=== PATIENT | male | born 1940 | race American Indian/Alaskan Native ===

== ENCOUNTER 2016-10-01 06:07 | Day surgery (SDC) | payer MEDICARE ==
[2016-10-01] MEDS ORDERED: ECOTRIN PO ONE (06:56)
[2016-10-01] MEDS ORDERED: NACL 0.9% 500 ML 500 ML IV SCH (07:00)
[2016-10-01 07:33] LABS: Basophils % (Auto) 0.6 % (0.0-1.8); Eosinophils % (Auto) 1.6 % (0.0-4.3); Hematocrit 39.3 % (35.5-45.6); Hemoglobin 13.1 gm/dl (11.8-15.2); Mean Corpuscular HGB Conc 33 % (32-34); Mean Corpuscular Hemoglobin 30 pg (28-32); Mean Corpuscular Volume 91 fl (84-94); Platelet Count 203 K/mm3 (140-440); Red Blood Count 4.33 M/mm3 (3.65-5.03); White Blood Count 5.7 K/mm3 (4.5-11.0)
[2016-10-01 07:46] LABS: INR 1.03 (0.87-1.13)
[2016-10-01] MEDS ORDERED: HEPARIN/NS 5000 UNIT/500ML(CATH LAB) 1,000 ML IR ONE (08:05)
[2016-10-01] MEDS ORDERED: CALAN ONE (08:05)
[2016-10-01] MEDS ORDERED: HEPARIN 10,000 UNITS/10 ML ONE (08:05)
[2016-10-01] MEDS ORDERED: VERSED ONE (08:06)
[2016-10-01] MEDS ORDERED: NITROGLYCERIN SYRINGE 3 ML ONE (08:06)
[2016-10-01] MEDS ORDERED: SUBLIMAZE ONE (08:06)
[2016-10-01 08:07] LABS: Anion Gap 18 mmol/L; Blood Urea Nitrogen 11 mg/dL (9-20); Calcium 8.8 mg/dL (8.4-10.2); Carbon Dioxide 23 mmol/L (22-30); Chloride 104.6 mmol/L (98-107); Glucose 102 mg/dL (75-100); Potassium 3.4 mmol/L (3.6-5.0); Sodium 142 mmol/L (137-145)
[2016-10-01] MEDS ORDERED: K-DUR PO ONE ×2 (08:17→09:00)
[2016-10-01] MEDS: XYLOCAINE 2% INFILTRATI ONE ×2 (09:04→09:08)
[2016-10-01] MEDS ORDERED: APRESOLINE ONE (09:16)
--- NOTE | 2016-10-01 09:35 | Short Stay Summary ---
Short Stay Documentation Date of service: 10/01/16 - History H&P: obtained from office - Allergies and Medications Current Medications: Allergies No Known Allergies Allergy (Verified 08/19/16 06:02) Home Medications Medication Instructions Recorded Confirmed Last Taken Type Aspirin EC [Aspirin Enteric Coated 325 mg PO QDAY #30 tablet 08/21/16 10/01/16 10/01/16 Rx TAB] Carvedilol [Coreg] 3.125 mg PO BID #60 tablet 08/21/16 Unknown Rx Furosemide [Lasix TAB] 40 mg PO QDAY #30 tablet 08/21/16 Unknown Rx Lisinopril [Zestril TAB] 2.5 mg PO QDAY #30 tablet 08/21/16 Unknown Rx Potassium Chloride [K-Dur] 10 meq PO QDAY #30 tablet 08/21/16 Unknown Rx Active Medications Sodium Chloride (Nacl 0.9% 500 Ml) 500 mls @ 50 mls/hr IV DIRECT TREVER Stop: 10/01/16 16:59 Last Admin: 10/01/16 08:04 Dose: 50 mls/hr - Physical exam General appearance: no acute distress Integumentary: no rash HEENT: Atraumatic Lungs: Clear to auscultation Breasts: deferred Heart: Regular rate Gastrointestinal: normal Male Genitourinary: deferred Female Genitourinary: deferred Rectal Exam: deferred Extremities: no ischemia Neurological: Normal gait - Brief post op/procedure progress note Date of procedure: 10/01/16 Pre-op diagnosis: Cardiomyopathy, abnormal stress test Post-op diagnosis: same Procedure: LHC, and LV gram Anesthesia: MAC Findings: Normal coronaries, LVEF 20% Surgeon: GIUSEPPE IYER Estimated blood loss: none Pathology: none Condition: stable - Hospital course Hospital course: Uneventful - Disposition Condition at discharge: Good Disposition: DISCHARGED TO HOME OR SELFCARE Short Stay Discharge Plan Activity: no driving until cleared by PCP (for 2 days) Weight Bearing Status: Non-Weight Bearing (limit to no more than 20 lbs) Diet: low salt, other (fluid restriction to 64 ounces per day) Wound: keep clean and dry Special Instructions: restrict fluid intake to (64 ounces per day) Follow up with: PRIMARY CARE, [Primary Care Provider] - 7 Days
--- NOTE | 2016-10-01 10:37 | Cardiac Catherization Report ---
LEFT HEART CATHETERIZATION INDICATION FOR PROCEDURE: Cardiomyopathy, abnormal myocardial perfusion scan. ORDERING PHYSICIAN: Jocelin Warren MD PROCEDURES PERFORMED: 1. Selective left and right coronary angiography. 2. Left ventriculography. DESCRIPTION OF PROCEDURE: 1. After obtaining written consent, the patient was draped using sterile technique. 2. A 2% lidocaine was injected into the right wrist. 3. A 5-Barbadian vascular sheath was inserted into the right radial artery. 4. The cannulation of the right radial artery could not be performed due to vasospasms; therefore, our attention was turned to the groin. Using micropuncture, a 5-Barbadian vascular sheath was inserted into the right superficial femoral artery. A 6-Barbadian JL4 catheter was used to selectively engage left coronary artery. 5. A 6-Barbadian JR4 catheter was used to selectively engage the right coronary artery. A 6-Barbadian pigtail catheter was used to perform a left ventriculogram. No complications occurred during the procedure. SPECIMEN REMOVED: None. ESTIMATED BLOOD LOSS: Minimal. Hemostasis was achieved at the end of the procedure using manual pressure. FINDINGS: HEMODYNAMICS: Aortic pressure is 150/97 with an LV systolic pressure of 151 mmHg. Left ventricular end-diastolic pressure was measured at 28 mmHg. There was no significant gradient across the left ventricular outflow tract. CARDIAC STRUCTURES: There is evidence of severe global left ventricular hypokinesis with the left ventricular ejection fraction estimated at 20%. CORONARY ANATOMY: 1. This is a right dominant circulation. 2. Left main is angiographically normal. 3. LAD is angiographically normal. 4. Left circumflex artery is angiographically normal. 5. Right coronary artery is angiographically normal. IMPRESSION: 1. Angiographically normal coronary arteries. 2. Severely global left ventricular hypokinesis with an ejection fraction estimated at 20%. 3. Left ventricular end diastolic pressure measured at 28 mmHg. 4. Findings are consistent with nonischemic cardiomyopathy. RECOMMENDATIONS: Continue current management and follow up as an outpatient. JOB# [id number] LACHO/DEBORAH
[2016-10-01 14:20] VITALS: BP 160/129
== END 2016-10-01 13:45 | disposition home or self-care (01) ==
LOC: OPU 06:07
PROVIDERS: ATTEND Internal Medicine
DX: R94.39 Abnormal result of other cardiovascular function study (principal); I42.9 Cardiomyopathy, unspecified; I11.0 Hypertensive heart disease with heart failure; I50.21 Acute systolic (congestive) heart failure
CPT/HCPCS: 36415; 80048; 85025; 85610; 93005; 93010; 93458; C1894; J0360; J1644; J2250; J3010; J7040; Q9967

== ENCOUNTER 2019-08-12 08:05 | Inpatient (IN) | payer MEDICARE ==
[2019-08-12] MEDS ORDERED: ASPIRIN 325 MG TAB PO ONE (08:22)
[2019-08-12] MEDS ORDERED: FUROSEMIDE 40 MG/4 ML INJ IV ONE (09:16)
[2019-08-12 09:18] LABS: Basophils # (Auto) 0.1 K/mm3 (0.0-0.1); Basophils % (Auto) 1.1 % (0.0-1.8); Eosinophils # (Auto) 0.2 K/mm3 (0.0-0.4); Eosinophils % (Auto) 3.4 % (0.0-4.3); Hematocrit 38.8 % (35.5-45.6); Hemoglobin 12.9 gm/dl (11.8-15.2); Lymphocytes # (Auto) 1.9 K/mm3 (1.2-5.4); Lymphocytes % (Auto) 30.1 % (13.4-35.0); Mean Corpuscular HGB Conc 33 % (32-34); Mean Corpuscular Volume 88 fl (84-94); Monocytes # (Auto) 0.4 K/mm3 (0.0-0.8); Monocytes % (Auto) 6.4 % (0.0-7.3); Platelet Count 258 K/mm3 (140-440)
--- NOTE | 2019-08-12 09:20 | Emergency Department Report ---
ED Shortness of Breath HPI - General Chief Complaint: Dyspnea/Respdistress Stated Complaint: VOMITING FOOT PAIN Time Seen by Provider: 08/12/19 09:12 Source: patient Mode of arrival: Wheelchair Limitations: No Limitations - History of Present Illness Initial Comments: Patient is 79 years old male with history of congestive heart failure secondary to nonischemic cardiomyopathy with ejection fraction of 20% in 2017, hypertension and coronary artery disease. Patient presented to the ER complaining of 3-day history of shortness of breath and difficulty in breathing and generalized weakness associated with bilateral lower extremity swelling. Patient denied any chest pain, fever or chills. Patient also denied any nausea or vomiting. MD Complaint: shortness of breath - Related Data Home Medications Medication Instructions Recorded Confirmed Last Taken Acetaminophen [Tylenol] 325 mg PO Q4HR PRN 02/26/19 02/26/19 3 Days Ago ~02/23/19 AtorvaSTATin [Lipitor] 40 mg PO QHS 02/26/19 02/26/19 3 Days Ago ~02/23/19 Ergocalciferol (Vitamin D2) 50,000 unit PO DAILY 02/26/19 02/26/19 2 Days Ago [Vitamin D2] ~02/24/19 Melatonin [Melatonin 3MG TAB] 3 mg PO HS 02/26/19 02/26/19 2 Days Ago ~02/24/19 Previous Rx's Medication Instructions Recorded Last Taken Type Aspirin EC [Ecotrin] 325 mg PO QDAY #30 tablet 08/21/16 1 Day Ago Rx ~02/25/19 Furosemide [Lasix TAB] 40 mg PO QDAY #30 tablet 08/21/16 1 Day Ago Rx ~02/25/19 Potassium Chloride [K-Dur] 10 meq PO QDAY #30 tablet 08/21/16 1 Day Ago Rx ~02/25/19 Folic Acid [Folvite] 1 mg PO QDAY #30 tablet 03/01/19 Unknown Rx Thiamine [Vitamin B-1] 100 mg PO QDAY #30 tablet 03/01/19 Unknown Rx carvediloL [Coreg] 3.125 mg PO BID tablet 03/01/19 Unknown Rx lisinopriL [Zestril TAB] 5 mg PO QDAY #30 tablet 03/01/19 Unknown Rx Allergies Allergy/AdvReac Type Severity Reaction Status Date / Time No Known Allergies Allergy Verified 08/19/16 06:02 ED Review of Systems ROS: Stated complaint: VOMITING FOOT PAIN Other details as noted in HPI Comment: All other systems reviewed and negative Constitutional: denies: chills, fever Respiratory: cough, orthopnea, shortness of breath, SOB with exertion, SOB at rest. denies: stridor, wheezing Cardiovascular: denies: chest pain Gastrointestinal: denies: abdominal pain, nausea Neurological: denies: headache ED Past Medical Hx - Past Medical History Previous Medical History?: Yes Hx Hypertension: Yes Hx Heart Attack/AMI: Yes Hx Congestive Heart Failure: Yes Hx Arthritis: Yes (neck) - Surgical History Past Surgical History?: No - Social History Smoking Status: Never Smoker Substance Use Type: None - Medications Home Medications: Home Medications Medication Instructions Recorded Confirmed Last Taken Type Aspirin EC [Ecotrin] 325 mg PO QDAY #30 tablet 08/21/16 02/26/19 1 Day Ago Rx ~02/25/19 Furosemide [Lasix TAB] 40 mg PO QDAY #30 tablet 08/21/16 02/26/19 1 Day Ago Rx ~02/25/19 Potassium Chloride [K-Dur] 10 meq PO QDAY #30 tablet 08/21/16 02/26/19 1 Day Ago Rx ~02/25/19 Acetaminophen [Tylenol] 325 mg PO Q4HR PRN 02/26/19 02/26/19 3 Days Ago History ~02/23/19 AtorvaSTATin [Lipitor] 40 mg PO QHS 02/26/19 02/26/19 3 Days Ago History ~02/23/19 Ergocalciferol (Vitamin D2) 50,000 unit PO DAILY 02/26/19 02/26/19 2 Days Ago History [Vitamin D2] ~02/24/19 Melatonin [Melatonin 3MG TAB] 3 mg PO HS 02/26/19 02/26/19 2 Days Ago History ~02/24/19 Folic Acid [Folvite] 1 mg PO QDAY #30 tablet 03/01/19 Unknown Rx Thiamine [Vitamin B-1] 100 mg PO QDAY #30 tablet 03/01/19 Unknown Rx carvediloL [Coreg] 3.125 mg PO BID tablet 03/01/19 Unknown Rx lisinopriL [Zestril TAB] 5 mg PO QDAY #30 tablet 03/01/19 Unknown Rx ED Physical Exam - General Limitations: No Limitations General appearance: alert, in distress (Moderate respiratory distress) - Head Head exam: Present: atraumatic, normocephalic, normal inspection - Eye Eye exam: Present: normal appearance - ENT ENT exam: Present: normal exam, normal orophraynx, mucous membranes moist - Neck Neck exam: Present: normal inspection, full ROM. Absent: tenderness, meningismus, lymphadenopathy, thyromegaly - Respiratory Respiratory exam: Present: respiratory distress, rales, decreased breath sounds. Absent: wheezes, rhonchi, stridor, chest wall tenderness, accessory muscle use, prolonged expiratory - Cardiovascular Cardiovascular Exam: Present: bradycardia - GI/Abdominal GI/Abdominal exam: Present: soft, normal bowel sounds. Absent: distended, tenderness, guarding, rebound, rigid, organomegaly, mass, bruit, pulsatile mass, hernia - Extremities Exam Extremities exam: Present: normal capillary refill, pedal edema - Back Exam Back exam: Present: normal inspection, full ROM. Absent: CVA tenderness (R), CVA tenderness (L) - Neurological Exam Neurological exam: Present: alert, oriented X3, CN II-XII intact. Absent: motor sensory deficit - Psychiatric Psychiatric exam: Present: normal mood - Skin Skin exam: Present: warm, intact, normal color ED Course Vital Signs 08/12/19 08/12/19 08/12/19 08:18 09:07 10:01 Temperature 97.7 F Pulse Rate 50 L 88 99 H Respiratory 18 30 H 30 H Rate Blood Pressure 173/113 155/104 155/101 [Left] O2 Sat by Pulse 97 96 96 Oximetry ED Medical Decision Making - Lab Data Result diagrams: 08/12/19 08:54 08/12/19 08:54 - EKG Data -: EKG Interpreted by Mi EKG shows normal: sinus rhythm Rate: normal - EKG Data Interpretation: no acute changes - Medical Decision Making Patient is 79 years old male with history of congestive heart failure secondary to nonischemic cardiomyopathy with ejection fraction of 20% in 2017, hypertension and coronary artery disease. Patient presented to the ER complaining of 3-day history of shortness of breath and difficulty in breathing and generalized weakness associated with bilateral lower extremity swelling. Patient denied any chest pain, fever or chills. Patient also denied any nausea or vomiting. Patient received Lasix 60 mg IV. Labs reviewed and showed significantly elevated BNP, chest x-ray showed pulmonary congestion. I discussed the patient with Dr. Aguilar, she advised to admit to her service for further management. Critical Care Time: Yes Critical care time in (mins) excluding proc time.: 30 Critical care attestation.: If time is entered above; I have spent that time in minutes in the direct care of this critically ill patient, excluding procedure time. ED Disposition Clinical Impression: Acute exacerbation of CHF (congestive heart failure), Hypertension, Shortness of breath Disposition: 09 OP ADMIT IP TO THIS HOSP Is pt being admited?: Yes Condition: Stable Instructions: Hypertension (ED) Referrals: PRIMARY CARE, [Primary Care Provider] - 3-5 Days
[2019-08-12 09:32] LABS: BUN/Creatinine Ratio 9; Blood Urea Nitrogen 9 mg/dL (9-20); Calcium 8.9 mg/dL (8.4-10.2); Hemolysis Index 131
--- NOTE | 2019-08-12 09:35 | XRay Report ---
CHEST 2 VIEWS, 08/12/2019 8:30 AM INDICATION: Chest pain COMPARISON: Chest radiograph, 08/19/2016 FINDINGS: Support devices: None Heart: Cardiac and mediastinal contours remain within normal limits. Lungs/pleura: No focal airspace consolidation or large pleural effusion is visualized. Additional findings: No significant acute abnormality. IMPRESSION: 1. No evidence of acute cardiopulmonary process. Signer Name: Dyana Mckeon MD Signed: 08/12/2019 9:30 AM Workstation Name: [id number]
[2019-08-12 09:50] LABS: INR 1.08 (0.87-1.13)
[2019-08-12 09:52] LABS: Partial Thromboplastin Time 28.1 Sec. (24.2-36.6)
[2019-08-12 09:57] LABS: Albumin 3.5 g/dL (3.9-5); Bilirubin,Direct 0.3 mg/dL (0-0.2)
--- NOTE | 2019-08-12 11:12 | History and Physical Report ---
History of Present Illness Date of examination: 08/12/19 Date of admission: 08/12/19 10:13 Chief complaint: Worsening shortness of breath and dizziness for the last to 3 days History of present illness: Very pleasant 79-year-old -[place] male patient with significant past medical history of congestive heart failure combined systolic diastolic noncompliant with medications nonischemic cardiomyopathy ejection fraction of 35 to 40% with abnormal left ventricular diastolic function, history of alcohol use, presented to the emergency room with worsening shortness of breath headache and dizziness, and near syncope episode Patient did not fall down, denies chest pain however complains of exertional dyspnea, paroxysmal nocturnal dyspnea and reduced effort tolerance Patient denies any nausea vomiting or abdominal pain Denies any cough, no urinary symptoms Initial work-up is consistent with acute exacerbation of congestive heart failure with elevated BNP chest x-ray no acute abnormality Past History Past Medical History: heart failure, hypertension, hyperlipidemia Past Surgical History: hernia repair Social history: lives with family, alcohol abuse. denies: smoking Family history: hypertension Medications and Allergies Allergies Allergy/AdvReac Type Severity Reaction Status Date / Time No Known Allergies Allergy Verified 08/19/16 06:02 Home Medications Medication Instructions Recorded Confirmed Last Taken Type Aspirin EC [Ecotrin] 325 mg PO QDAY #30 tablet 08/21/16 02/26/19 1 Day Ago Rx ~02/25/19 Furosemide [Lasix TAB] 40 mg PO QDAY #30 tablet 08/21/16 02/26/19 1 Day Ago Rx ~02/25/19 Potassium Chloride [K-Dur] 10 meq PO QDAY #30 tablet 08/21/16 02/26/19 1 Day Ago Rx ~02/25/19 Acetaminophen [Tylenol] 325 mg PO Q4HR PRN 02/26/19 02/26/19 3 Days Ago History ~02/23/19 AtorvaSTATin [Lipitor] 40 mg PO QHS 02/26/19 02/26/19 3 Days Ago History ~02/23/19 Ergocalciferol (Vitamin D2) 50,000 unit PO DAILY 02/26/19 02/26/19 2 Days Ago History [Vitamin D2] ~02/24/19 Melatonin [Melatonin 3MG TAB] 3 mg PO HS 02/26/19 02/26/19 2 Days Ago History ~02/24/19 Folic Acid [Folvite] 1 mg PO QDAY #30 tablet 03/01/19 Unknown Rx Thiamine [Vitamin B-1] 100 mg PO QDAY #30 tablet 03/01/19 Unknown Rx carvediloL [Coreg] 3.125 mg PO BID tablet 03/01/19 Unknown Rx lisinopriL [Zestril TAB] 5 mg PO QDAY #30 tablet 03/01/19 Unknown Rx Review of Systems Constitutional: weakness, malaise, no weight loss, no weight gain, no anorexia, no fatigue Ears, nose, mouth and throat: sinus pressure (Congestion), no nasal congestion, no nasal discharge Cardiovascular: orthopnea, edema, shortness of breath, dyspnea on exertion, no chest pain Respiratory: shortness of breath, dyspnea on exertion, congestion, no cough Gastrointestinal: no abdominal pain, no nausea, no vomiting Genitourinary Male: no dysuria, no hematuria Musculoskeletal: no myalgias, no arthritis Integumentary: no rash, no lesions Neurological: headaches, other (Dizziness) Psychiatric: no anxiety, no depression Endocrine: no cold intolerance, no heat intolerance, no polydipsia, no polyuria Hematologic/Lymphatic: no easy bruising, no easy bleeding Allergic/Immunologic: no urticaria, no allergic rhinitis Exam - Constitutional Vitals: Temp Pulse Resp BP Pulse Ox 97.7 F 99 H 30 H 155/101 96 08/12/19 08:18 08/12/19 10:08/12/19 10:01 08/12/19 10:08/12/19 10:01 General appearance: Present: mild distress, well-nourished - EENT Eyes: Present: PERRL, EOM intact - Neck Neck: Present: supple, normal ROM - Respiratory Respiratory effort: normal Respiratory: bilateral: diminished, rales, negative: rhonchi, wheezing - Cardiovascular Rhythm: regular Heart Sounds: Present: S1 & S2 - Extremities Extremities: no ischemia Extremity abnormal: edema - Abdominal General gastrointestinal: Present: soft, non-tender, non-distended, normal bowel sounds - Integumentary Integumentary: Present: clear, warm - Musculoskeletal Musculoskeletal: generalized weakness - Psychiatric Psychiatric: appropriate mood/affect, cooperative - Neurologic Neurologic: moves all extremities Results - Labs CBC & Chem 7: 08/12/19 08:54 08/12/19 08:54 Labs: Abnormal lab results 08/12/19 08/12/19 Range/Units 08:54 09:30 Chloride 96.9 L (98-107) mmol/L Glucose 124 H (75-100) mg/dL Total Bilirubin 1.40 H (0.1-1.2) mg/dL Direct Bilirubin 0.3 H (0-0.2) mg/dL NT-Pro-B Natriuret Pep 6984 H (0-900) pg/mL Total Protein 6.2 L (6.3-8.2) g/dL Albumin 3.5 L (3.9-5) g/dL Assessment and Plan --Acute on chronic combined systolic/diastolic congestive heart failure;EF 35- 40% Left ventricular diastolic dysfunction on echo, Cardiology consult if no improvement IV diuretics, beta-blockers, JUANPABLO inhibitors, input output monitoring, low-sodium diet, fluids restriction --Headache dizziness near syncope feeling; CT head without contrast, fall precautions Physical therapy occupational therapy Possible home with home health and home PT at discharge --Constipation; advised to drink plenty of fluids and high-fiber diet Stool softeners as needed --Hypertension; moderate control Resume home antihypertensives and PRN medications --Dyslipidemia; continue statin Low-cholesterol diet --History of chronic alcohol use; Advised to quit alcohol intake Monitor for any alcohol withdrawal symptoms [facility] protocol as needed -DVT prophylaxis; Lovenox --Full CODE STATUS Monitor closely and adjust management as needed Plan of care reviewed with the patient and the daughters at the bedside As well as patient's nurse We will monitor clinically and adjust the management as needed
[2019-08-12] MEDS ORDERED: carvediloL 3.125 MG TAB PO ONE (15:00)
[2019-08-12] MEDS ORDERED: LISINOPRIL 20 MG TAB PO ONE (15:00)
[2019-08-12 15:19] LABS: Chol/HDL Ratio 2.22 %
[2019-08-12] MEDS: FUROSEMIDE 40 MG/4 ML INJ IV SCH (17:11)
[2019-08-12] MEDS ORDERED: LORATADINE/PSEUDOEPHEDRINE 10-240 MG TAB 24HR PO ONE (18:00)
[2019-08-12] MEDS ORDERED: MAGNESIUM HYDROXIDE (MOM) ORAL LIQD UDC PO ONE (18:00)
--- NOTE | 2019-08-12 19:00 | Cat Scan Report ---
CT BRAIN: 08/12/2019 INDICATION / CLINICAL INFORMATION: Headache and dizziness. COMPARISON: 02/25/2019 FINDINGS: BRAIN/INTRACRANIAL STRUCTURES: Unenhanced CT images of the brain were obtained and compared to the pr ior exam from 02/25/2019. There is been no change. There is no evidence of acute abnormality. Ventricles and sulci are somewhat prominent in size, consi stent with age-related atrophic change. There is no evidence of hemorrhage or mass. There are no abnormal extra-axial fluid collections. EXTRACRANIAL STRUCTURES: Unremarkable. IMPRESSION: No acute abnormality. Chronic and age-related changes. All CT scans at this location are performed using dose reduction to ALARA by means of automated expos ure control. Signer Name: Miguel Smith MD Signed: 08/12/2019 6:55 PM Workstation Name: [id number]
[2019-08-12] MEDS: hydrALAZINE 20 MG/1 ML INJ IV PRN (21:18)
[2019-08-12] MEDS: carvediloL 3.125 MG TAB PO SCH (21:19)
[2019-08-12] MEDS: MELATONIN 5 MG TAB PO SCH (21:20)
[2019-08-12] MEDS ORDERED: MELATONIN 3 MG PO SCH (22:00)
[2019-08-13] MEDS: hydrALAZINE 20 MG/1 ML INJ IV PRN ×2 (01:22→16:04)
[2019-08-13 06:28] LABS: Creatine Kinase MB 3.5 ng/mL (0.0-4.0)
[2019-08-13 06:29] LABS: BUN/Creatinine Ratio 10; Blood Urea Nitrogen 9 mg/dL (9-20); Calcium 8.7 mg/dL (8.4-10.2); Hemolysis Index 1
[2019-08-13] MEDS ORDERED: POTASSIUM CHLORIDE ER 20 MEQ TAB PO ONE ×2 (06:44→16:39)
[2019-08-13] MEDS: carvediloL 3.125 MG TAB PO SCH ×2 (09:12→21:25)
[2019-08-13] MEDS: ASPIRIN EC 325 MG TAB PO SCH (09:12)
[2019-08-13] MEDS: POTASSIUM CHLORIDE ER 10 MEQ TAB PO SCH (09:12)
[2019-08-13] MEDS: ENOXAPARIN 40 MG/0.4 ML INJ SUB-Q SCH (09:12)
[2019-08-13] MEDS: LISINOPRIL 20 MG TAB PO SCH (09:13)
[2019-08-13] MEDS: FOLIC ACID 1 MG TAB PO SCH (09:13)
[2019-08-13] MEDS: THIAMINE 100 MG TAB PO SCH (09:13)
[2019-08-13] MEDS ORDERED: MAGNESIUM HYDROXIDE (MOM) ORAL LIQD UDC PO PRN (10:00)
[2019-08-13] MEDS ORDERED: LISINOPRIL 5 MG TAB PO SCH (10:00)
[2019-08-13] MEDS ORDERED: ENOXAPARIN 30 MG/0.3 ML INJ SUB-Q SCH (10:00)
[2019-08-13] MEDS ORDERED: POTASSIUM CHLORIDE ER 20 MEQ TAB PO NR ×2 (10:34→15:00)
--- NOTE | 2019-08-13 10:42 | Progress Note ---
Assessment and Plan Assessment and plan: --Severe hypokalemia; K 2.3 Replenish with 40 mEq oral and 20 mEq IV KCl Patient already received 40 mEq p.o. 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;EF 20%[2017] Left ventricular diastolic dysfunction on echo, Cardiology consult IV diuretics, beta-blockers, JUANPABLO inhibitors, input output monitoring, low-sodium diet, fluids restriction --Headache dizziness near syncope feeling; CT head negative, fall precautions Physical therapy occupational therapy Possible home with home health and home PT at discharge --Constipation; advised to drink plenty of fluids and high-fiber diet Stool softeners as needed --Hypertension; moderate control Resume home antihypertensives and PRN medications --Dyslipidemia; continue statin Low-cholesterol diet --History of chronic alcohol use; Advised to quit alcohol intake Monitor for any alcohol withdrawal symptoms [facility] protocol as needed -DVT prophylaxis; Lovenox --Full CODE STATUS Monitor closely and adjust management as needed Plan of care reviewed with the patient and the daughters at the bedside As well as patient's nurse We will monitor clinically and adjust the management as needed History Interval history: Patient seen and examined , patient's chart and medications reviewed Patient has severe hypokalemia potassium of 2.3 Complains of shortness of breath, not feeling well Denies chest pain Vital signs reviewed Hospitalist Physical - Constitutional Vitals: Temp Pulse Resp BP Pulse Ox 98.4 F 74 18 140/84 98 08/13/19 08:07 08/13/19 09:13 08/13/19 08:07 08/13/19 09:13 08/13/19 08:07 General appearance: Present: mild distress, well-nourished - EENT Eyes: Present: PERRL, EOM intact ENT: hearing intact, clear oral mucosa - Neck Neck: Present: supple, normal ROM - Respiratory Respiratory effort: normal Respiratory: bilateral: diminished, rales, negative: rhonchi, wheezing - Cardiovascular Rhythm: regular Heart Sounds: Present: S1 & S2 - Extremities Extremities: no ischemia Extremity abnormal: edema - Abdominal General gastrointestinal: soft, non-tender, non-distended, normal bowel sounds - Integumentary Integumentary: Present: clear, warm - Psychiatric Psychiatric: appropriate mood/affect, cooperative - Neurologic Neurologic: moves all extremities Results - Labs CBC & Chem 7: 08/12/19 08:54 08/13/19 11:43 Labs: Laboratory Last Values WBC 6.2 K/mm3 (4.5-11.0) 08/12/19 08:54 RBC 4.40 M/mm3 (3.65-5.03) 08/12/19 08:54 Hgb 12.9 gm/dl (11.8-15.2) 08/12/19 08:54 Hct 38.8 % (35.5-45.6) 08/12/19 08:54 MCV 88 fl (84-94) 08/12/19 08:54 MCH 29 pg (28-32) 08/12/19 08:54 MCHC 33 % (32-34) 08/12/19 08:54 RDW 15.0 % (13.2-15.2) 08/12/19 08:54 Plt Count 258 K/mm3 (140-440) 08/12/19 08:54 Lymph % (Auto) 30.1 % (13.4-35.0) 08/12/19 08:54 [place] % (Auto) 6.4 % (0.0-7.3) 08/12/19 08:54 Eos % (Auto) 3.4 % (0.0-4.3) 08/12/19 08:54 Baso % (Auto) 1.1 % (0.0-1.8) 08/12/19 08:54 Lymph # 1.9 K/mm3 (1.2-5.4) 08/12/19 08:54 [place] # 0.4 K/mm3 (0.0-0.8) 08/12/19 08:54 Eos # 0.2 K/mm3 (0.0-0.4) 08/12/19 08:54 Baso # 0.1 K/mm3 (0.0-0.1) 08/12/19 08:54 Seg Neutrophils % 59.0 % (40.0-70.0) 08/12/19 08:54 Seg Neutrophils # 3.6 K/mm3 (1.8-7.7) 08/12/19 08:54 PT 14.1 Sec. (12.2-14.9) 08/12/19 09:30 INR 1.08 (0.87-1.13) 08/12/19 09:30 APTT 28.1 Sec. (24.2-36.6) 08/12/19 09:30 Sodium 139 mmol/L (137-145) 08/13/19 05:19 Potassium 2.3 mmol/L (3.6-5.0) L* D 08/13/19 05:19 Chloride 92.1 mmol/L (98-107) L 08/13/19 05:19 Carbon Dioxide 34 mmol/L (22-30) H D 08/13/19 05:19 Anion Gap 15 mmol/L 08/13/19 05:19 BUN 9 mg/dL (9-20) 08/13/19 05:19 Creatinine 0.9 mg/dL (0.8-1.5) 08/13/19 05:19 Estimated GFR > 60 ml/min 08/13/19 05:19 BUN/Creatinine Ratio 10 % 08/13/19 05:19 Glucose 94 mg/dL (75-100) 08/13/19 05:19 Calcium 8.7 mg/dL (8.4-10.2) 08/13/19 05:19 Magnesium 1.70 mg/dL (1.7-2.3) 08/13/19 05:19 Total Bilirubin 1.40 mg/dL (0.1-1.2) H 08/12/19 09:30 Direct Bilirubin 0.3 mg/dL (0-0.2) H 08/12/19 09:30 Indirect Bilirubin 1.1 mg/dL 08/12/19 09:30 AST 16 units/L (5-40) 08/12/19 09:30 ALT 18 units/L (7-56) 08/12/19 09:30 Alkaline Phosphatase 116 units/L (35-129) 08/12/19 09:30 Total Creatine Kinase 102 units/L (55-170) 08/13/19 05:19 CK-MB (CK-2) 3.5 ng/mL (0.0-4.0) 08/13/19 05:19 CK-MB (CK-2) Rel Index 3.4 (0-4) 08/13/19 05:19 Troponin T 0.035 ng/mL (0.00-0.029) H 08/13/19 05:19 NT-Pro-B Natriuret Pep 6984 pg/mL (0-900) H 08/12/19 09:30 Total Protein 6.2 g/dL (6.3-8.2) L 08/12/19 09:30 Albumin 3.5 g/dL (3.9-5) L 08/12/19 09:30 Albumin/Globulin Ratio 1.3 % 08/12/19 09:30 Triglycerides 87 mg/dL (2-149) 08/12/19 14:09 Cholesterol 100 mg/dL (50-199) 08/12/19 14:09 LDL Cholesterol Direct 39 mg/dL (50-130) L 08/12/19 14:09 HDL Cholesterol 45 mg/dL (40-59) 08/12/19 14:09 Cholesterol/HDL Ratio 2.22 % 08/12/19 14:09 Active Medications - Current Medications Current Medications: Generic Name Dose Route Start Last Admin Trade Name Freq PRN Reason Stop Dose Admin Aspirin 325 mg 08/13/19 10:00 08/13/19 09:12 Ecotrin PO 325 mg QDAY TREVER Administration Atorvastatin Calcium 40 mg 08/12/19 22:00 08/12/19 21:19 Lipitor PO 40 mg QHS TREVER Administration Carvedilol 3.125 mg 08/12/19 22:00 08/13/19 09:12 Coreg PO 3.125 mg BID TREVER Administration Enoxaparin Sodium 40 mg 08/13/19 10:00 08/13/19 09:12 Enoxaparin SUB-Q 40 mg QDAY@1000 TREVER Administration Folic Acid 1 mg 08/13/19 10:00 08/13/19 09:13 Folvite PO 1 mg QDAY TREVER Administration Furosemide 40 mg 08/12/19 18:00 08/12/19 17:11 Lasix IV 40 mg 0600,1800 TREVER Administration Hydralazine HCl 20 mg 08/12/19 14:13 08/13/19 01:22 Apresoline IV 20 mg Q4HR PRN Administration Hypertension Potassium Chloride 10 meq in 100 mls @ 100 mls/hr 08/13/19 11:00 Kcl 10meq/100ml IV 08/13/19 12:59 Q1H TREVER Lisinopril 20 mg 08/13/19 10:00 08/13/19 09:13 Zestril PO 20 mg QDAY TREVER Administration Loratadine/Pseudoephedrine Sulfate 1 each 08/13/19 18:00 Claritin-D 24hr PO Q24H TREVER Magnesium Hydroxide 30 ml 08/13/19 10:00 Milk Of Magnesia PO QDAY PRN Constipation Melatonin 5 mg 08/12/19 22:00 08/12/19 21:20 Melatonin PO 5 mg QHS TREVER Administration Potassium Chloride 10 meq 08/13/19 10:00 08/13/19 09:12 K-Dur PO 10 meq QDAY TREVER Administration Potassium Chloride 40 meq 08/13/19 10:34 K-Dur PO 08/13/19 11:30 ONCE NR Thiamine HCl 100 mg 08/13/19 10:00 08/13/19 09:13 Vitamin B-1 PO 100 mg QDAY TREVER Administration
--- NOTE | 2019-08-13 12:50 | Consultation ---
History of Present Illness Consult date: 08/13/19 Consult reason: congestive heart failure History of present illness: This is a 79-year old male with a history of nonischemic cardiomyopathy by eugenia fang cath in 2017 that reports normal coronaries, but a decrease left ventricular ejection fraction 20%. Patient presents to this hospital with complaints of shortness of breath, nausea with vomiting and lower extremity edema, admitted with CHF exacerbation. Patient reports he has not followed with a diesel engine erector in several years and has been non-compliance with dietary indiscretions. He denies chest pain. Admits shortness of breath with minimal exertion. Patient also reports he has diuresed well since admission and his lower extremity edema has resolved. A cardiac consultation has been requested for CHF management. Past History Past Medical History: heart failure, hypertension, hyperlipidemia Past Surgical History: hernia repair Social history: lives with family, alcohol abuse. denies: smoking Family history: hypertension Medications and Allergies Allergies Allergy/AdvReac Type Severity Reaction Status Date / Time No Known Allergies Allergy Verified 08/19/16 06:02 Home Medications Medication Instructions Recorded Confirmed Last Taken Type Aspirin EC [Ecotrin] 325 mg PO QDAY #30 tablet 08/21/16 02/26/19 1 Day Ago Rx ~02/25/19 Furosemide [Lasix TAB] 40 mg PO QDAY #30 tablet 08/21/16 02/26/19 1 Day Ago Rx ~02/25/19 Potassium Chloride [K-Dur] 10 meq PO QDAY #30 tablet 08/21/16 02/26/19 1 Day Ago Rx ~02/25/19 Acetaminophen [Tylenol] 325 mg PO Q4HR PRN 02/26/19 02/26/19 3 Days Ago History ~02/23/19 AtorvaSTATin [Lipitor] 40 mg PO QHS 02/26/19 02/26/19 3 Days Ago History ~02/23/19 Ergocalciferol (Vitamin D2) 50,000 unit PO DAILY 02/26/19 02/26/19 2 Days Ago History [Vitamin D2] ~02/24/19 Melatonin [Melatonin 3MG TAB] 3 mg PO HS 02/26/19 02/26/19 2 Days Ago History ~02/24/19 Folic Acid [Folvite] 1 mg PO QDAY #30 tablet 03/01/19 Unknown Rx Thiamine [Vitamin B-1] 100 mg PO QDAY #30 tablet 03/01/19 Unknown Rx carvediloL [Coreg] 3.125 mg PO BID tablet 03/01/19 Unknown Rx lisinopriL [Zestril TAB] 5 mg PO QDAY #30 tablet 03/01/19 Unknown Rx Active Meds: Active Medications Aspirin (Ecotrin) 325 mg PO QDAY [facility] Last Admin: 08/13/19 09:12 Dose: 325 mg Documented by: Atorvastatin Calcium (Lipitor) 40 mg PO QHS [facility] Last Admin: 08/12/19 21:19 Dose: 40 mg Documented by: Carvedilol (Coreg) 3.125 mg PO BID [facility] Last Admin: 08/13/19 09:12 Dose: 3.125 mg Documented by: Enoxaparin Sodium (Enoxaparin) 40 mg SUB-Q QDAY@1000 [facility] Last Admin: 08/13/19 09:12 Dose: 40 mg Documented by: Folic Acid (Folvite) 1 mg PO QDAY [facility] Last Admin: 08/13/19 09:13 Dose: 1 mg Documented by: Furosemide (Lasix) 40 mg IV 0600,1800 [facility] Last Admin: 08/12/19 17:11 Dose: 40 mg Documented by: Hydralazine HCl (Apresoline) 20 mg IV Q4HR PRN PRN Reason: Hypertension Last Admin: 08/13/19 01:22 Dose: 20 mg Documented by: Potassium Chloride (Kcl 10meq/100ml) 10 meq in 100 mls @ 100 mls/hr IV Q1H [facility] Stop: 08/13/19 12:59 Lisinopril (Zestril) 20 mg PO QDAY [facility] Last Admin: 08/13/19 09:13 Dose: 20 mg Documented by: Loratadine/Pseudoephedrine Sulfate (Claritin-D 24hr) 1 each PO Q24H [facility] Magnesium Hydroxide (Milk Of Magnesia) 30 ml PO QDAY PRN PRN Reason: Constipation Melatonin (Melatonin) 5 mg PO QHS [facility] Last Admin: 08/12/19 21:20 Dose: 5 mg Documented by: Potassium Chloride (K-Dur) 10 meq PO QDAY [facility] Last Admin: 08/13/19 09:12 Dose: 10 meq Documented by: Thiamine HCl (Vitamin B-1) 100 mg PO QDAY [facility] Last Admin: 08/13/19 09:13 Dose: 100 mg Documented by: Physical Examination Vital Signs Temp Pulse Resp BP Pulse Ox 97.7 F 50 L 18 173/113 97 08/12/19 08:18 08/12/19 08:18 08/12/19 08:18 08/12/19 08:18 08/12/19 08:18 General appearance: no acute distress HEENT: Positive: PERRL Neck: Positive: trachea midline Cardiac: Positive: Reg Rate and Rhythm Lungs: Positive: Decreased Breath Sounds Neuro: Positive: Grossly Intact Extremities: Absent: edema Results 08/12/19 08:54 08/13/19 11:43 Cardiac Enzymes 08/13/19 Range/Units 05:19 CK-MB (CK-2) 3.5 (0.0-4.0) ng/mL Lipids 08/12/19 Range/Units 14:09 Triglycerides 87 (2-149) mg/dL Cholesterol 100 (50-199) mg/dL HDL Cholesterol 45 (40-59) mg/dL Cholesterol/HDL Ratio 2.22 % Comprehensive Metabolic Panel 08/13/19 08/13/19 Range/Units 05:19 11:43 Sodium 139 (137-145) mmol/L Potassium 2.3 L* D 2.8 L* D (3.6-5.0) mmol/L Chloride 92.1 L (98-107) mmol/L Carbon Dioxide 34 H D (22-30) mmol/L BUN 9 (9-20) mg/dL Creatinine 0.9 (0.8-1.5) mg/dL Glucose 94 (75-100) mg/dL Calcium 8.7 (8.4-10.2) mg/dL Assessment and Plan Acute on chronic systolic heart failure [facility] 09/2016: normal coronaries, EF 20%. Hypokalemia Hypertension Noncompliant with dietary indiscretions and outpatient cardiac follow ups Recommendations: Sodium/fluid restriction. Medical therapy for acute on chronic heart failure to include diuretics, aft erload reduction agents, beta blockers, aspirin and aldactone therapy. We will get an echocardiogram for LVEF reassessment.
[2019-08-13] MEDS: POTASSIUM CHLORIDE 10 MEQ 10 MEQ/100 ML BAG IV SCH ×2 (13:08→13:09)
[2019-08-13] MEDS: LORATADINE/PSEUDOEPHEDRINE 10-240 MG TAB 24HR PO SCH (18:46)
[2019-08-13] MEDS: FUROSEMIDE 40 MG/4 ML INJ IV SCH (20:25)
[2019-08-13] MEDS: MELATONIN 5 MG TAB PO SCH (21:25)
[2019-08-14] MEDS: FUROSEMIDE 40 MG/4 ML INJ IV SCH ×2 (05:14→21:09)
[2019-08-14 06:46] LABS: BUN/Creatinine Ratio 11; Blood Urea Nitrogen 12 mg/dL (9-20); Calcium 9.2 mg/dL (8.4-10.2); Hemolysis Index 22
[2019-08-14] MEDS: ENOXAPARIN 40 MG/0.4 ML INJ SUB-Q SCH (09:01)
[2019-08-14] MEDS: ASPIRIN EC 325 MG TAB PO SCH (09:01)
[2019-08-14] MEDS: THIAMINE 100 MG TAB PO SCH (09:01)
[2019-08-14] MEDS: FOLIC ACID 1 MG TAB PO SCH (09:01)
[2019-08-14] MEDS: carvediloL 3.125 MG TAB PO SCH ×2 (09:02→21:10)
[2019-08-14] MEDS: LISINOPRIL 20 MG TAB PO SCH (09:02)
[2019-08-14] MEDS: POTASSIUM CHLORIDE ER 10 MEQ TAB PO SCH (09:02)
[2019-08-14] MEDS ORDERED: POTASSIUM CHLORIDE ER 20 MEQ TAB PO ONE (09:20)
--- NOTE | 2019-08-14 09:43 | Progress Note ---
Assessment and Plan Assessment and plan: --Severe hypokalemia; K 2.3-3.1 today Replenish with 60 mEq oral Monitor electrolytes, magnesium levels normal --Acute on chronic systolic congestive heart failure;EF 20%[2017] Left ventricular diastolic dysfunction on echo, Cardiology consult IV diuretics, beta-blockers, JUANPABLO inhibitors, input output monitoring, low-sodium diet, fluids restriction Follow echocardiogram for LV function ejection fraction --Headache dizziness near syncope feeling; CT head negative, fall precautions Physical therapy occupational therapy Possible home with home health and home PT at discharge --Constipation; advised to drink plenty of fluids and high-fiber diet Stool softeners as needed --Hypertension; moderate control Resume home antihypertensives and PRN medications --Dyslipidemia; continue statin Low-cholesterol diet --History of chronic alcohol use; Advised to quit alcohol intake Monitor for any alcohol withdrawal symptoms [facility] protocol as needed -DVT prophylaxis; Lovenox --Full CODE STATUS Monitor closely and adjust management as needed Plan of care reviewed with the patient and the daughters at the bedside As well as patient's nurse We will monitor clinically and adjust the management as needed Hospitalist Physical - Constitutional Vitals: Temp Pulse Resp BP Pulse Ox 97.7 F 93 H 20 148/106 96 08/14/19 07:38 08/14/19 07:38 08/14/19 07:38 08/14/19 07:38 08/14/19 07:38 General appearance: Present: mild distress, well-nourished Results - Labs CBC & Chem 7: 08/12/19 08:54 08/14/19 05:24 Labs: Laboratory Last Values WBC 6.2 K/mm3 (4.5-11.0) 08/12/19 08:54 RBC 4.40 M/mm3 (3.65-5.03) 08/12/19 08:54 Hgb 12.9 gm/dl (11.8-15.2) 08/12/19 08:54 Hct 38.8 % (35.5-45.6) 08/12/19 08:54 MCV 88 fl (84-94) 08/12/19 08:54 MCH 29 pg (28-32) 08/12/19 08:54 MCHC 33 % (32-34) 08/12/19 08:54 RDW 15.0 % (13.2-15.2) 08/12/19 08:54 Plt Count 258 K/mm3 (140-440) 08/12/19 08:54 Lymph % (Auto) 30.1 % (13.4-35.0) 08/12/19 08:54 [place] % (Auto) 6.4 % (0.0-7.3) 08/12/19 08:54 Eos % (Auto) 3.4 % (0.0-4.3) 08/12/19 08:54 Baso % (Auto) 1.1 % (0.0-1.8) 08/12/19 08:54 Lymph # 1.9 K/mm3 (1.2-5.4) 08/12/19 08:54 [place] # 0.4 K/mm3 (0.0-0.8) 08/12/19 08:54 Eos # 0.2 K/mm3 (0.0-0.4) 08/12/19 08:54 Baso # 0.1 K/mm3 (0.0-0.1) 08/12/19 08:54 Seg Neutrophils % 59.0 % (40.0-70.0) 08/12/19 08:54 Seg Neutrophils # 3.6 K/mm3 (1.8-7.7) 08/12/19 08:54 PT 14.1 Sec. (12.2-14.9) 08/12/19 09:30 INR 1.08 (0.87-1.13) 08/12/19 09:30 APTT 28.1 Sec. (24.2-36.6) 08/12/19 09:30 Sodium 139 mmol/L (137-145) 08/14/19 05:24 Potassium 3.1 mmol/L (3.6-5.0) L 08/14/19 05:24 Chloride 94.1 mmol/L (98-107) L 08/14/19 05:24 Carbon Dioxide 29 mmol/L (22-30) 08/14/19 05:24 Anion Gap 19 mmol/L 08/14/19 05:24 BUN 12 mg/dL (9-20) 08/14/19 05:24 Creatinine 1.1 mg/dL (0.8-1.5) 08/14/19 05:24 Estimated GFR > 60 ml/min 08/14/19 05:24 BUN/Creatinine Ratio 11 % 08/14/19 05:24 Glucose 94 mg/dL (75-100) 08/14/19 05:24 Calcium 9.2 mg/dL (8.4-10.2) 08/14/19 05:24 Magnesium 1.90 mg/dL (1.7-2.3) 08/14/19 05:24 Total Bilirubin 1.40 mg/dL (0.1-1.2) H 08/12/19 09:30 Direct Bilirubin 0.3 mg/dL (0-0.2) H 08/12/19 09:30 Indirect Bilirubin 1.1 mg/dL 08/12/19 09:30 AST 16 units/L (5-40) 08/12/19 09:30 ALT 18 units/L (7-56) 08/12/19 09:30 Alkaline Phosphatase 116 units/L (35-129) 08/12/19 09:30 Total Creatine Kinase 102 units/L (55-170) 08/13/19 05:19 CK-MB (CK-2) 3.5 ng/mL (0.0-4.0) 08/13/19 05:19 CK-MB (CK-2) Rel Index 3.4 (0-4) 08/13/19 05:19 Troponin T 0.035 ng/mL (0.00-0.029) H 08/13/19 05:19 NT-Pro-B Natriuret Pep 6984 pg/mL (0-900) H 08/12/19 09:30 Total Protein 6.2 g/dL (6.3-8.2) L 08/12/19 09:30 Albumin 3.5 g/dL (3.9-5) L 08/12/19 09:30 Albumin/Globulin Ratio 1.3 % 08/12/19 09:30 Triglycerides 87 mg/dL (2-149) 08/12/19 14:09 Cholesterol 100 mg/dL (50-199) 08/12/19 14:09 LDL Cholesterol Direct 39 mg/dL (50-130) L 08/12/19 14:09 HDL Cholesterol 45 mg/dL (40-59) 08/12/19 14:09 Cholesterol/HDL Ratio 2.22 % 08/12/19 14:09 Active Medications - Current Medications Current Medications: Generic Name Dose Route Start Last Admin Trade Name Freq PRN Reason Stop Dose Admin Aspirin 325 mg 08/13/19 10:00 08/14/19 09:01 Ecotrin PO 325 mg QDAY TREVER Administration Atorvastatin Calcium 40 mg 08/12/19 22:00 08/13/19 21:25 Lipitor PO 40 mg QHS TREVER Administration Carvedilol 3.125 mg 08/12/19 22:00 08/14/19 09:02 Coreg PO 3.125 mg BID TREVER Administration Enoxaparin Sodium 40 mg 08/13/19 10:00 08/14/19 09:01 Enoxaparin SUB-Q 40 mg QDAY@1000 TREVER Administration Folic Acid 1 mg 08/13/19 10:00 08/14/19 09:01 Folvite PO 1 mg QDAY TREVER Administration Furosemide 40 mg 08/12/19 18:00 08/14/19 05:14 Lasix IV 40 mg 0600,1800 TREVER Administration Hydralazine HCl 20 mg 08/12/19 14:13 08/13/19 16:04 Apresoline IV 20 mg Q4HR PRN Administration Hypertension Lisinopril 20 mg 08/13/19 10:00 08/14/19 09:02 Zestril PO 20 mg QDAY TREVER Administration Loratadine/Pseudoephedrine Sulfate 1 each 08/13/19 18:00 08/13/19 18:46 Claritin-D 24hr PO 1 each Q24H TREVER Administration Magnesium Hydroxide 30 ml 08/13/19 10:00 Milk Of Magnesia PO QDAY PRN Constipation Melatonin 5 mg 08/12/19 22:00 08/13/19 21:25 Melatonin PO 5 mg QHS TREVER Administration Potassium Chloride 10 meq 08/13/19 10:00 08/14/19 09:02 K-Dur PO 10 meq QDAY TREVER Administration Potassium Chloride 20 meq 08/14/19 10:00 K-Dur PO 08/14/19 11:01 1000,1030,1100 TREVER Thiamine HCl 100 mg 08/13/19 10:00 08/14/19 09:01 Vitamin B-1 PO 100 mg QDAY TREVER Administration
[2019-08-14] MEDS: POTASSIUM CHLORIDE ER 20 MEQ TAB PO SCH ×5 (10:25→16:28)
--- NOTE | 2019-08-14 10:33 | Progress Note ---
Assessment and Plan Acute on chronic systolic heart failure [facility] 09/2016: normal coronaries, EF 20%. LVEF 35-40% by echo 02/2019. Hypokalemia Hypertension Noncompliant with dietary indiscretions and outpatient cardiac follow ups Recommendations: Advised sodium/fluid restriction. Continue medical therapy for acute on chronic heart failure to include diuretic s, afterload reduction agents, beta blockers, and aspirin. Subjective Date of service: 08/14/19 Interval history: Patient reports is breathing is better. Admits he is diuresing well. No reported events on telemetry. Objective Vital Signs Temp Pulse Resp BP BP Pulse Ox 08/14/19 07:38 97.7 F 93 H 20 148/106 96 08/14/19 07:00 86 08/14/19 05:12 97.6 F 87 1 L 141/93 97 08/13/19 23:52 97.5 F L 94 H 22 114/71 96 08/13/19 23:00 96 H 08/13/19 21:25 103 H 121/78 08/13/19 21:23 93 H 100 08/13/19 20:33 101 H 20 115/65 93 08/13/19 20:25 102 H 141/99 95 08/13/19 17:38 86 113/75 08/13/19 16:04 97 H 155/110 08/13/19 16:02 98.4 F 96 H 18 155/110 94 08/13/19 12:40 98.6 F 53 L 18 153/109 99 08/13/19 11:10 87 - Physical Examination General: No Apparent Distress HEENT: Positive: PERRL Neck: Positive: trachea midline Cardiac: Positive: Reg Rate and Rhythm Lungs: Positive: Decreased Breath Sounds Neuro: Positive: Grossly Intact Extremities: Absent: edema - Labs and Meds Comprehensive Metabolic Panel 08/13/19 08/13/19 08/14/19 Range/Units 11:43 18:34 05:24 Sodium 139 (137-145) mmol/L Potassium 2.8 L* D 3.7 D 3.1 L (3.6-5.0) mmol/L Chloride 94.1 L (98-107) mmol/L Carbon Dioxide 29 (22-30) mmol/L BUN 12 (9-20) mg/dL Creatinine 1.1 (0.8-1.5) mg/dL Glucose 94 (75-100) mg/dL Calcium 9.2 (8.4-10.2) mg/dL
[2019-08-14] MEDS ORDERED: LORazepam 2 MG/ML VIAL IV ONE (20:30)
[2019-08-14] MEDS ORDERED: ALPRAZolam 1 MG TAB PO PRN (20:32)
[2019-08-14] MEDS: MELATONIN 5 MG TAB PO SCH (21:09)
[2019-08-14] MEDS: LORATADINE/PSEUDOEPHEDRINE 10-240 MG TAB 24HR PO SCH (21:45)
[2019-08-15] MEDS: FUROSEMIDE 40 MG/4 ML INJ IV SCH (05:31)
[2019-08-15] MEDS: LISINOPRIL 20 MG TAB PO SCH (10:04)
[2019-08-15] MEDS: FOLIC ACID 1 MG TAB PO SCH (10:04)
[2019-08-15] MEDS: ASPIRIN EC 325 MG TAB PO SCH (10:04)
[2019-08-15] MEDS: THIAMINE 100 MG TAB PO SCH (10:04)
[2019-08-15] MEDS: POTASSIUM CHLORIDE ER 10 MEQ TAB PO SCH (10:04)
[2019-08-15] MEDS: carvediloL 3.125 MG TAB PO SCH (10:04)
[2019-08-15] MEDS: ENOXAPARIN 40 MG/0.4 ML INJ SUB-Q SCH (10:05)
--- NOTE | 2019-08-15 10:35 | Progress Note ---
Assessment and Plan Acute on chronic systolic heart failure [facility] 09/2016: normal coronaries, EF 20%. LVEF 30-35% by echo this admission. Hypokalemia Hypertension Noncompliant with dietary indiscretions and outpatient cardiac follow ups Recommendations: Advised sodium/fluid restriction. Continue medical therapy for acute on chronic heart failure to include diuretics, afterload reduction agents, beta blockers, and aspirin. Stable cardiac smith. Once discharged, patient advised to follow up on our office with Dr Warren on August 26 at 240 pm. Subjective Date of service: 08/15/19 Interval history: Patient reports is breathing is better. Admits he is diuresing well. No reported events on telemetry. Objective Vital Signs Temp Pulse Resp BP Pulse Ox 08/15/19 10:04 89 113/78 08/15/19 03:49 97.5 F L 89 18 113/78 94 08/15/19 00:32 20 08/14/19 23:31 98.1 F 88 18 116/68 93 08/14/19 21:10 99 H 143/101 08/14/19 19:34 97.1 F L 99 H 18 143/101 98 08/14/19 16:15 97.6 F 92 H 20 147/105 96 08/14/19 15:00 88 08/14/19 12:17 98.1 F 100 H 22 151/101 93 - Physical Examination General: No Apparent Distress HEENT: Positive: PERRL Neck: Positive: trachea midline Cardiac: Positive: Reg Rate and Rhythm Lungs: Positive: Decreased Breath Sounds Neuro: Positive: Grossly Intact Abdomen: Positive: Active Bowel Sounds Extremities: Absent: edema
[2019-08-15 12:37] VITALS: BP 103/69
--- NOTE | 2019-08-15 14:23 | Discharge Summary ---
Providers - Providers Date of Admission: 08/12/19 10:13 Date of discharge: 08/15/19 Attending physician: CATA GARCIA 08/12/19 17:41 Physical Therapy Evaluation and Treat [CONS] Routine Comment: Reason For Exam: Dizziness near syncope/evaluate and treat 08/13/19 10:37 Consult to Physician [CONS] Routine Comment: Consulting Provider: JOSE ENRIQUE THOMAS Physician Instructions: Reason For Exam: AC on chronic syst CHF Primary care physician: SWEETBREAD TRIMMER Hospitalization Condition: Stable Hospital course: --Severe hypokalemia; K 2.3-3.1 today Replenish with 60 mEq oral Monitor electrolytes, magnesium levels normal --Acute on chronic systolic congestive heart failure;EF 20%[2017] current echo,30-35% EF Cardiology following IV diuretics, beta-blockers, JUANPABLO inhibitors, input output monitoring, low-sodium diet, fluids restriction Follow echocardiogram for LV function ejection fraction --Headache dizziness near syncope feeling; CT head negative, fall precautions Physical therapy occupational therapy Possible home with home health and home PT at discharge --Constipation; advised to drink plenty of fluids and high-fiber diet Stool softeners as needed --Hypertension; moderate control Resume home antihypertensives and PRN medications --Dyslipidemia; continue statin Low-cholesterol diet --History of chronic alcohol use; Advised to quit alcohol intake Monitor for any alcohol withdrawal symptoms [facility] protocol as needed -DVT prophylaxis; Lovenox --Full CODE STATUS Cleared by cardiology Stable at discharge Disposition: [id number] HOME UNDER HOME HLTH Time spent for discharge: 35 min Core Measure Documentation - Palliative Care Palliative Care/ Comfort Measures: Not Applicable - Core Measures Any of the following diagnoses?: heart failure - Heart Failure Discharge Requirements JUANPABLO/ARB for LVSD if EF <40%: Yes Beta eulalio at discharge: Yes Exam - Constitutional Vitals: Temp Pulse Resp BP Pulse Ox 98.2 F 89 18 103/69 96 08/15/19 11:46 08/15/19 11:46 08/15/19 11:46 08/15/19 11:46 08/15/19 11:46 General appearance: Present: no acute distress, well-nourished - EENT Eyes: Present: PERRL, EOM intact - Neck Neck: Present: supple, normal ROM - Respiratory Respiratory effort: normal Respiratory: bilateral: diminished, negative: rales, rhonchi, wheezing - Cardiovascular Rhythm: regular Heart Sounds: Present: S1 & S2 - Extremities Extremities: no ischemia Extremity abnormal: edema (Trace) - Abdominal General gastrointestinal: Present: soft, non-tender, non-distended, normal bowel sounds - Integumentary Integumentary: Present: clear, warm - Musculoskeletal Musculoskeletal: strength equal bilaterally, generalized weakness - Psychiatric Psychiatric: appropriate mood/affect, cooperative - Neurologic Neurologic: moves all extremities Plan Activity: advance as tolerated, fall precautions Diet: low salt, other (cardiac diet) Special Instructions: physical therapy Additional Instructions: Fall precautions. Advised to comply with medications, diet, low-salt diet, follow-up visits. If you have chest pain or severe shortness of breath, contact MD or go to emergency room Follow up with: PRIMARY CARE, [Primary Care Provider] - 3-5 Days [facility] IYER MD [Staff Physician] - 08/27/19 2:40 am Prescriptions: Loratadine/Pseudoephedrine [Claritin-D 24HR] 1 each PO Q24H #10 tablet lisinopriL [Zestril TAB] 20 mg PO QDAY #30 tablet
== END 2019-08-15 15:30 | disposition home health service (06) | DRG 293 ==
LOC: ED 08:05 → 4A 10:13
PROVIDERS: ADMIT Internal Medicine; ATTEND Internal Medicine
DX: I11.0 Hypertensive heart disease with heart failure (principal); I50.43 Acute on chronic combined systolic (congestive) and diastolic (congestive) heart failure; I42.8 Other cardiomyopathies; K59.00 Constipation, unspecified; E78.5 Hyperlipidemia, unspecified; E87.6 Hypokalemia; M19.90 Unspecified osteoarthritis, unspecified site; Z72.89 Other problems related to lifestyle; Z71.41 Alcohol abuse counseling and surveillance of alcoholic; Z91.11 Patient's noncompliance with dietary regimen; Z82.49 Family history of ischemic heart disease and other diseases of the circulatory system; Z79.82 Long term (current) use of aspirin; Z79.899 Other long term (current) drug therapy; I25.2 Old myocardial infarction
CPT/HCPCS: 36415; 70450; 71046; 80048; 80061; 80076; 82550; 82553; 83735; 83880; 84132; 84484; 85025; 85610; 85730; 87116; 93005; 93010; 93306; G0378; A9270-GY; J0360; J1650; J1940; J3480

== ENCOUNTER 2020-03-02 10:54 | Emergency (ER) | payer MEDICARE ==
--- NOTE | 2020-03-02 16:12 | Emergency Department Report ---
HPI - General Chief Complaint: Pain General Time Seen by Provider: 03/02/20 15:50 - HPI HPI: This is a 80-year-old male presents to the emergency department from home with a complaint of a 1 to 2-day history of bilateral lower extremity pain, mostly around the knees. He denies any fall or injury. He denies any swelling to the legs. Patient has a past medical history that includes CHF, coronary artery disease with previous DC, hypertension, arthritis. He has not taken anything for his symptoms prior to presentation. Patient is able to ambulate without any cane, walker or assistance. ED Past Medical Hx - Past Medical History Hx Hypertension: Yes Hx Heart Attack/AMI: Yes Hx Congestive Heart Failure: Yes Hx Arthritis: Yes (neck) - Social History Smoking Status: Never Smoker Substance Use Type: None - Medications Home Medications: Home Medications Medication Instructions Recorded Confirmed Last Taken Type Aspirin EC [Ecotrin] 325 mg PO QDAY #30 tablet 08/21/16 02/26/19 1 Day Ago Rx ~02/25/19 Potassium Chloride [K-Dur] 10 meq PO QDAY #30 tablet 08/21/16 02/26/19 1 Day Ago Rx ~02/25/19 Acetaminophen [Tylenol] 325 mg PO Q4HR PRN 02/26/19 02/26/19 3 Days Ago History ~02/23/19 AtorvaSTATin [Lipitor] 40 mg PO QHS 02/26/19 02/26/19 3 Days Ago History ~02/23/19 Ergocalciferol (Vitamin D2) 50,000 unit PO DAILY 02/26/19 02/26/19 2 Days Ago History [Vitamin D2] ~02/24/19 Melatonin [Melatonin 3MG TAB] 3 mg PO HS 02/26/19 02/26/19 2 Days Ago History ~02/24/19 Folic Acid [Folvite] 1 mg PO QDAY #30 tablet 03/01/19 Unknown Rx Thiamine [Vitamin B-1] 100 mg PO QDAY #30 tablet 03/01/19 Unknown Rx carvediloL [Coreg] 3.125 mg PO BID tablet 03/01/19 Unknown Rx Docusate Sodium [Colace CAP] 100 mg PO BID PRN #30 capsule 08/15/19 Unknown Rx Furosemide [Lasix TAB] 40 mg PO QDAY #30 tablet 08/15/19 Unknown Rx Loratadine/Pseudoephedrine 1 each PO Q24H #10 tablet 08/15/19 Unknown Rx [Claritin-D 24HR] lisinopriL [Zestril TAB] 20 mg PO QDAY #30 tablet 08/15/19 Unknown Rx Spironolactone [Aldactone] 25 mg PO QDAY #30 tablet 12/06/19 Unknown Rx Sulfamethoxazole/Trimethoprim 1 each PO BID #14 tablet 03/02/20 Unknown Rx [Bactrim DS TAB] ED Review of Systems ROS: Stated complaint: BODY PAIN Other details as noted in HPI Comment: All other systems reviewed and negative Constitutional: denies: chills, fever Eyes: denies: eye pain, vision change ENT: denies: ear pain, throat pain Respiratory: denies: cough, shortness of breath Cardiovascular: denies: chest pain, palpitations Gastrointestinal: denies: abdominal pain, vomiting Genitourinary: denies: dysuria, discharge Musculoskeletal: arthralgia, myalgia. denies: back pain, joint swelling Skin: denies: rash, lesions Neurological: denies: headache, weakness, numbness, paresthesias Physical Exam - Physical Exam Vital Signs: Vital Signs 03/02/20 11:05 Temperature 97.8 F Pulse Rate 93 H Respiratory 20 Rate Blood Pressure 112/71 O2 Sat by Pulse 96 Oximetry Physical Exam: GENERAL: The patient is well-developed well-nourished. HENT: Normocephalic. Atraumatic. Patient has moist mucous membranes. EYES: Extraocular motions are intact. NECK: Supple. Trachea is midline. CHEST/LUNGS: Clear to auscultation. There is no respiratory distress noted. HEART/CARDIOVASCULAR: Regular. There is no tachycardia. There is no murmur. ABDOMEN: Abdomen is soft, nontender. Patient has normal bowel sounds. There is no abdominal distention. SKIN: Skin is warm and dry. NEURO: The patient is awake, alert, and cooperative. The patient has no focal neurologic deficits. Normal speech. MUSCULOSKELETAL: No tenderness to palpation to the affected bilateral lower extremities and/or knees. There is no limitation range of motion. ED Course Vital Signs 03/02/20 11:05 Temperature 97.8 F Pulse Rate 93 H Respiratory 20 Rate Blood Pressure 112/71 O2 Sat by Pulse 96 Oximetry - Consultations Consultation #1: 03/02/20 20:03 I spoke to the environmental project manager on-call, Dr. Nava. Based on the patient's labs and presentation, he is safe for outpatient follow-up from a nephrology standpoint for his renal insufficiency. She did recommend that we make sure that the patient can urinate and that this is not due to urinary retention. ED Medical Decision Making - Lab Data Result diagrams: 03/02/20 16:12 03/02/20 16:12 - Radiology Data Radiology results: report reviewed BILATERAL KNEES, 6 VIEWS INDICATION: knee pain. COMPARISON: No relevant prior imaging study available. FINDINGS: No acute fracture or dislocation is seen bilaterally. Small bilateral knee effusions. There is advanced tricompartmental degenerative change bilaterally. Osteochondral bodies are seen in the left suprapatellar pouch. IMPRESSION: 1. Advanced tricompartmental degenerative changes with small associated effusions DUPLEX DOPPLER LOWER EXTREMITY VEINS, BILATERAL INDICATION / CLINICAL INFORMATION: B/L lower extremity pain. TECHNIQUE: Duplex doppler imaging was performed through the veins of both lower extremities using venous compression and other maneuvers. COMPARISON: None available. FINDINGS: RIGHT COMMON FEMORAL VEIN: Negative. RIGHT FEMORAL VEIN: Negative. RIGHT POPLITEAL VEIN: Negative. RIGHT CALF VEINS: Negative. LEFT COMMON FEMORAL VEIN: Negative. LEFT FEMORAL VEIN: Negative. LEFT POPLITEAL VEIN: Negative. LEFT CALF VEINS: Negative. ADDITIONAL FINDINGS: None. IMPRESSION: 1. No sonographic evidence for DVT in either lower extremity. - Medical Decision Making This patient initial complaint was bilateral lower extremity pain that even more specifically was described as "inside of my knees." No obvious deformities. Bilateral x-ray of the knees shows tricompartmental osteoarthritis with small effusions. The knees himself do not appear red, swollen or erythematous and the patient is afebrile. Bilateral lower extremity venous Doppler ultrasounds were completed that did not show any evidence of DVT or Sanchez cysts. As part of his evaluation he had some labs done including CBC and BMP. Patient appears to have some renal insufficiency and/or FRANCISCO. He had normal kidney function when he was last here in November. I had spoken to nephrology who felt that this could be an outpatient work-up for the renal insufficiency. At that time I had mentioned that we are attempting to get a urine sample. The patient kept saying he was unable to urinate as he felt he was constipated and felt that you were related. His abdomen is soft, nondistended, nontender to palpation and nontoxic in appearance. We did place a Bryant catheter and then got out about 700 cc of urine. Urinalysis does not show any urinary tract infection. This may be part of the reason for the patient's renal insufficiency. Vital signs have been reassuring throughout his ED course. The patient will be discharged home to follow-up with his primary care physician, nephrology and urology. He was switched to a leg bag. He was given antibiotics empirically for the Bryant catheter placement. He will return to the emergency department with any worsening of his symptoms or with any acute distress. Critical Care Time: No Critical care attestation.: If time is entered above; I have spent that time in minutes in the direct care of this critically ill patient, excluding procedure time. ED Disposition Clinical Impression: Urinary retention, Acute kidney injury Disposition: TO HOME OR SELFCARE Is pt being admited?: No Condition: Stable Instructions: Urinary Retention in Men (ED), Impaired Kidney Function (ED) Additional Instructions: Please follow-up with your primary care physician in the next few days. I am giving you a referral for a local orthopedist, Dr. Glover, to follow-up regarding your knee pain and osteoarthritis. I am giving you a referral for a local urologist, Dr. Castellanos, to follow-up regarding the urinary retention and the Byrant catheter placed today. I am giving you a referral for a local environmental project manager, Dr. Cunningham, to follow-up regarding the impaired kidney function. Return to the emergency department with any worsening of your symptoms or with any acute distress. Prescriptions: Sulfamethoxazole/Trimethoprim [Bactrim DS TAB] 1 each PO BID #14 tablet Referrals: HANS DOZIER MD [Primary Care Provider] - 2-3 Days MIKEL CASTELLANOS MD [Staff Physician] - 2-3 Days CHAR CUNNINGHAM MD [Staff Physician] - 2-3 Days Time of Disposition: 20:12
[2020-03-02 16:33] LABS: Basophils % (Auto) 0.2 % (0.0-1.8); Hematocrit 43.6 % (35.5-45.6); Lymphocytes # (Auto) 0.7 K/mm3 (1.2-5.4); Lymphocytes % (Auto) 7.3 % (13.4-35.0); Mean Corpuscular HGB Conc 35 % (32-34); Mean Corpuscular Volume 88 fl (84-94); Monocytes # (Auto) 0.4 K/mm3 (0.0-0.8); Monocytes % (Auto) 4.8 % (0.0-7.3); Platelet Count 236 K/mm3 (140-440); Red Blood Count 4.95 M/mm3 (3.65-5.03)
[2020-03-02 16:56] LABS: Calcium 9.7 mg/dL (8.4-10.2)
--- NOTE | 2020-03-02 17:01 | XRay Report ---
BILATERAL KNEES, 6 VIEWS INDICATION: knee pain. COMPARISON: No relevant prior imaging study available. FINDINGS: No acute fracture or dislocation is seen bilaterally. Small bilateral knee effusions. There is advanced tricompartmental degenerative change bilaterally. Osteochondral bodies are seen in the left suprapatellar pouch. IMPRESSION: 1. Advanced tricompartmental degenerative changes with small associated effusions Signer Name: Reggie Soria MD Signed: 03/02/2020 4:56 PM Workstation Name: [id number]
--- NOTE | 2020-03-02 17:40 | Vascular Lab Report ---
DUPLEX DOPPLER LOWER EXTREMITY VEINS, BILATERAL INDICATION / CLINICAL INFORMATION: B/L lower extremity pain. TECHNIQUE: Duplex doppler imaging was performed through the veins of both lower extremities using venous fer adamaris and other maneuvers. COMPARISON: None available. FINDINGS: RIGHT COMMON FEMORAL VEIN: Negative. RIGHT FEMORAL VEIN: Negative. RIGHT POPLITEAL VEIN: Negative. RIGHT CALF VEINS: Negative. LEFT COMMON FEMORAL VEIN: Negative. LEFT FEMORAL VEIN: Negative. LEFT POPLITEAL VEIN: Negative. LEFT CALF VEINS: Negative. ADDITIONAL FINDINGS: None. IMPRESSION: 1. No sonographic evidence for DVT in either lower extremity. Signer Name: Reggie Soria MD Signed: 03/02/2020 5:35 PM Workstation Name: [id number]
[2020-03-02 20:10] LABS: Bilirubin,Urine NEG (Negative); Blood,Urine NEG (Negative); Color,Urine Yellow (Yellow); Mucus,Urine FEW /HPF; Protein,Urine <15 mg/dL mg/dL (Negative); Urobilinogen,Urine < 2.0 mg/dL (<2.0); WBC,Urine < 1.0 /HPF (0.0-6.0)
[2020-03-02 23:58] VITALS: BP 145/89
== END 2020-03-03 00:15 | disposition home or self-care (01) ==
LOC: ED 10:54
DX: R33.8 Other retention of urine (principal); N17.9 Acute kidney failure, unspecified; I11.0 Hypertensive heart disease with heart failure; I50.9 Heart failure, unspecified; M13.88 Other specified arthritis, other site; I25.2 Old myocardial infarction; Z79.899 Other long term (current) drug therapy
CPT/HCPCS: 36415; 51702; 80048; 81001; 85025; 93970

== ENCOUNTER 2020-03-03 17:27 | Emergency (ER) | payer MEDICARE ==
[2020-03-03 17:41] VITALS: BP 133/99
== END 2020-03-03 18:08 | disposition left against medical advice (07) ==
LOC: ED 17:27
DX: Z53.21 Procedure and treatment not carried out due to patient leaving prior to being seen by health care provider (principal)

== ENCOUNTER 2020-05-05 03:09 | Emergency (ER) | payer MEDICARE ==
--- NOTE | 2020-05-05 05:13 | Emergency Department Report ---
ED Male HPI - General Chief complaint: Urogenital-Male Stated complaint: CATH OUT Time Seen by Provider: 05/05/20 04:48 Source: family Mode of arrival: Ambulatory Limitations: No Limitations - History of Present Illness Initial comments: 80-year-old male with dementia presents here with son complaining of dysuria, no urination today with increased pressure to the pelvic area. Is due to have surgical intervention of his issue today 6 mm. Reports having dull pressure pain to the pelvic area but no fever chills sweats no chest pain palpitation no nausea vomiting MD Complaint: dysuria -: Gradual, unknown (yesterday) Radiation: none Severity: mild, moderate Quality: aching, burning, dull Improves with: none Worsens with: none urinary retention - Related Data Sexually active: No Home Medications Medication Instructions Recorded Confirmed Last Taken Acetaminophen [Tylenol] 325 mg PO Q4HR PRN 02/26/19 04/28/20 3 Days Ago ~02/23/19 AtorvaSTATin [Lipitor] 40 mg PO QHS 02/26/19 04/28/20 3 Days Ago ~02/23/19 Ergocalciferol (Vitamin D2) 50,000 unit PO QWEEK 02/26/19 04/28/20 2 Days Ago [Vitamin D2] ~02/24/19 Previous Rx's Medication Instructions Recorded Last Taken Type Aspirin EC [Ecotrin] 325 mg PO QDAY #30 tablet 08/21/16 1 Day Ago Rx ~02/25/19 Potassium Chloride [K-Dur] 10 meq PO QDAY #30 tablet 08/21/16 1 Day Ago Rx ~02/25/19 Folic Acid [Folvite] 1 mg PO QDAY #30 tablet 03/01/19 Unknown Rx Thiamine [Vitamin B-1] 100 mg PO QDAY #30 tablet 03/01/19 Unknown Rx carvediloL [Coreg] 3.125 mg PO BID tablet 03/01/19 Unknown Rx Docusate Sodium [Colace CAP] 100 mg PO BID PRN #30 capsule 08/15/19 Unknown Rx Furosemide [Lasix TAB] 40 mg PO QDAY #30 tablet 08/15/19 Unknown Rx lisinopriL [Zestril TAB] 20 mg PO QDAY #30 tablet 08/15/19 Unknown Rx Spironolactone [Aldactone] 25 mg PO QDAY #30 tablet 12/06/19 Unknown Rx Allergies Allergy/AdvReac Type Severity Reaction Status Date / Time No Known Allergies Allergy Verified 03/02/20 11:04 ED Review of Systems ROS: Stated complaint: CATH OUT Other details as noted in HPI Comment: All other systems reviewed and negative ED Past Medical Hx - Past Medical History Previous Medical History?: Yes Hx Hypertension: Yes (X 20 YRS) Hx Heart Attack/AMI: Yes (PER H&P , FAMILY UNSURE) Hx Congestive Heart Failure: Yes (IN HOSPITAL 11/2019) Hx GERD: Yes Hx Arthritis: Yes Hx COPD: Yes (NON COMPLIANT WITH MEDS,DOES NOT USE INHALER) Hx Dementia: Yes (ADVANCED) Hx HIV: No - Surgical History Past Surgical History?: No - Social History Smoking Status: Never Smoker Substance Use Type: None - Medications Home Medications: Home Medications Medication Instructions Recorded Confirmed Last Taken Type Aspirin EC [Ecotrin] 325 mg PO QDAY #30 tablet 08/21/16 04/28/20 1 Day Ago Rx ~02/25/19 Potassium Chloride [K-Dur] 10 meq PO QDAY #30 tablet 08/21/16 04/28/20 1 Day Ago Rx ~02/25/19 Acetaminophen [Tylenol] 325 mg PO Q4HR PRN 02/26/19 04/28/20 3 Days Ago History ~02/23/19 AtorvaSTATin [Lipitor] 40 mg PO QHS 02/26/19 04/28/20 3 Days Ago History ~02/23/19 Ergocalciferol (Vitamin D2) 50,000 unit PO QWEEK 02/26/19 04/28/20 2 Days Ago History [Vitamin D2] ~02/24/19 Folic Acid [Folvite] 1 mg PO QDAY #30 tablet 03/01/19 04/28/20 Unknown Rx Thiamine [Vitamin B-1] 100 mg PO QDAY #30 tablet 03/01/19 04/28/20 Unknown Rx carvediloL [Coreg] 3.125 mg PO BID tablet 03/01/19 04/28/20 Unknown Rx Docusate Sodium [Colace CAP] 100 mg PO BID PRN #30 capsule 08/15/19 04/28/20 Unknown Rx Furosemide [Lasix TAB] 40 mg PO QDAY #30 tablet 08/15/19 04/28/20 Unknown Rx lisinopriL [Zestril TAB] 20 mg PO QDAY #30 tablet 08/15/19 04/28/20 Unknown Rx Spironolactone [Aldactone] 25 mg PO QDAY #30 tablet 12/06/19 04/28/20 Unknown Rx ED Physical Exam - General Limitations: No Limitations General appearance: alert, in no apparent distress - Head Head exam: Present: atraumatic, normocephalic - Eye Eye exam: Present: normal appearance - ENT ENT exam: Present: mucous membranes moist - Neck Neck exam: Present: normal inspection - Respiratory Respiratory exam: Present: normal lung sounds bilaterally. Absent: respiratory distress - Cardiovascular Cardiovascular Exam: Present: regular rate, normal rhythm. Absent: systolic murmur, diastolic murmur, rubs, gallop - GI/Abdominal GI/Abdominal exam: Present: soft, normal bowel sounds - Rectal Rectal exam: Present: deferred - Extremities Exam Extremities exam: Present: normal inspection - Back Exam Back exam: Present: normal inspection - Neurological Exam Neurological exam: Present: alert, oriented X3 - Psychiatric Psychiatric exam: Present: normal affect, normal mood - Skin Skin exam: Present: warm, dry, intact, normal color. Absent: rash ED Medical Decision Making - Medical Decision Making Due for surgery this morning to have this BPH corrected Critical care attestation.: If time is entered above; I have spent that time in minutes in the direct care of this critically ill patient, excluding procedure time. ED Disposition Disposition: DC-01 TO HOME OR SELFCARE Condition: Stable Instructions: Urodynamic Testing Additional Instructions: Please be sure to keep your urology appointment today for surgical intervention regarding your prostate. 600 mL were evacuated from the Bryant catheter Referrals: MIKEL CHAWLA MD [Primary Care Provider] - 3-5 Days
[2020-05-05 05:31] VITALS: BP 153/101
== END 2020-05-05 05:24 | disposition home or self-care (01) ==
LOC: ED 03:09
DX: R30.0 Dysuria (principal); R10.2 Pelvic and perineal pain; I11.0 Hypertensive heart disease with heart failure; I50.9 Heart failure, unspecified; I25.2 Old myocardial infarction; K21.9 Gastro-esophageal reflux disease without esophagitis; M19.91 Primary osteoarthritis, unspecified site; J44.9 Chronic obstructive pulmonary disease, unspecified; F03.90 Unspecified dementia, unspecified severity, without behavioral disturbance, psychotic disturbance, mood disturbance, and anxiety; Z79.899 Other long term (current) drug therapy
CPT/HCPCS: 51702; 99282

== ENCOUNTER 2020-05-05 06:02 | Observation (INO) | payer MEDICARE ==
[2020-04-29 09:38] LABS: Hematocrit 40.6 % (35.5-45.6); Hemoglobin 13.2 gm/dl (11.8-15.2); Mean Corpuscular HGB Conc 33 % (32-34); Mean Corpuscular Volume 91 fl (84-94); Platelet Count 249 K/mm3 (140-440); Red Blood Count 4.46 M/mm3 (3.65-5.03); Red Cell Distribution Width 16.3 % (13.2-15.2)
--- NOTE | 2020-04-29 09:49 | Anesthesia Consultation ---
Anesthesia Consult and Med Hx Date of service: 04/30/20 - Airway Anesthetic Teeth Evaluation: Poor (Missing, scraggly) ROM Head & Neck: Adequate Mental/Hyoid Distance: Adequate Mallampati Class: Class II Intubation Access Assessment: Good - Pre-Operative Health Status ASA Pre-Surgery Classification: ASA3 Proposed Anesthetic Plan: General - Pulmonary Hx Smoking: Yes (STOPPED ) SOB: Yes (SOB. Decreased activity level. Negative 2FS) COPD: Yes (NON COMPLIANT WITH MEDS,DOES NOT USE INHALER) - Cardiovascular System Hx Hypertension: Yes (X 20 YRS) Hx Coronary Artery Disease: Yes Hx Heart Attack/AMI: Yes (PER H&P , FAMILY UNSURE) - Central Nervous System Hx Neuromuscular Disorder: Yes (Dementia) Hx Back Pain: Yes (NECK PAIN) Hx Psychiatric Problems: (NONCOMPLIANT WITH MEDS AND DOCTOR VISITS) - Hematic Hx Anemia: No - Other Systems Hx Alcohol Use: Yes (CHRONIC ALCOLHOL ABUSE- DRY ( maybe) X 2 YRS PER FAMILY) Hx Cancer: No - Additional Comments Anesthesia Medical History Comments: Systolic heart failure. Nonischemic CMP. Echo 08/2019: LVEF 30-35%. LHC 09/2016: normal coronaries, LVEF 20%. Noncompliant with dietary indiscretions. Dementia
[2020-04-29 10:04] LABS: Alanine Aminotransferase 20 units/L (7-56); Albumin 3.8 g/dL (3.9-5); BUN/Creatinine Ratio 15; Blood Urea Nitrogen 15 mg/dL (9-20); Calcium 9.4 mg/dL (8.4-10.2); Hemolysis Index 0
[~2020-05-05 06:02] MED LIST: LACTATED RINGERS 1,000 ML IV SCH; ceFAZolin/STERILE WATER 2 GM/20 ML SYRINGE IV NR
[2020-05-05] MEDS ORDERED: BACTERIOSTATIC SODIUM CHLORIDE 0.9% 30 ML VIAL INFILTRATI ONE (06:25)
[2020-05-05] MEDS ORDERED: carvediloL 3.125 MG TAB PO NR (07:19)
[2020-05-05] MEDS ORDERED: fentaNYL 100 MCG/2 ML INJ IV PRN (07:19)
--- NOTE | 2020-05-05 07:20 | Anesthesia Day of Surgery ---
Anesthesia Day of Surgery - Day of Surgery Patient Examined: Yes Patient H&P Reviewed: Yes Patient is NPO: Yes Beta Blockers: Yes (will give morning dose carvedilol)
[2020-05-05] MEDS ORDERED: LIDOCAINE MPF (2%) 20 MG/1 ML VIAL 5 ML ONE (07:35)
[2020-05-05] MEDS ORDERED: propofoL 200 MG/20 ML VIAL IV ONE (07:35)
[2020-05-05] MEDS ORDERED: fentaNYL 100 MCG/2 ML INJ ONE ×2 (07:35→08:48)
[2020-05-05] MEDS ORDERED: ePHEDrine SULFATE 50 MG/1 ML INJ ONE (07:58)
[2020-05-05] MEDS ORDERED: SODIUM CHLORIDE 0.9% 1000 ML IV SOLN IR ONE (08:15)
[2020-05-05] MEDS ORDERED: IOHEXOL 240 MG/ML 200 ML IV ONE (08:17)
[2020-05-05] MEDS ORDERED: SODIUM CHLORIDE 0.9% IRRIG SOLN 2000 ML IR ONE ×2 (08:46)
[2020-05-05] MEDS ORDERED: dexAMETHasone 20 MG/5 ML VIAL ONE (08:48)
[2020-05-05] MEDS ORDERED: PHENYLEPHRINE/NS 1,000 MCG/10 ML SYRINGE (OR USE) IV ONE (08:48)
[2020-05-05] MEDS ORDERED: ONDANSETRON 4 MG/2 ML INJ ONE (08:48)
--- NOTE | 2020-05-05 09:20 | Short Stay Summary ---
Short Stay Documentation Date of service: 05/05/20 - History H&P: obtained from office - Allergies and Medications Current Medications: Allergies No Known Allergies Allergy (Verified 03/02/20 11:04) Home Medications Medication Instructions Recorded Confirmed Last Taken Type Aspirin EC [Ecotrin] 325 mg PO QDAY #30 tablet 08/21/16 04/28/20 05/04/20 Rx Potassium Chloride [K-Dur] 10 meq PO QDAY #30 tablet 08/21/16 04/28/20 05/04/20 Rx Acetaminophen [Tylenol] 325 mg PO Q4HR PRN 02/26/19 04/28/20 05/04/20 History AtorvaSTATin [Lipitor] 40 mg PO QHS 02/26/19 04/28/20 05/04/20 History Ergocalciferol (Vitamin D2) 50,000 unit PO QWEEK 02/26/19 04/28/20 05/04/20 History [Vitamin D2] Folic Acid [Folvite] 1 mg PO QDAY #30 tablet 03/01/19 04/28/20 05/04/20 Rx Thiamine [Vitamin B-1] 100 mg PO QDAY #30 tablet 03/01/19 04/28/20 05/04/20 Rx carvediloL [Coreg] 3.125 mg PO BID tablet 03/01/19 04/28/20 05/04/20 Rx Docusate Sodium [Colace CAP] 100 mg PO BID PRN #30 capsule 08/15/19 04/28/20 05/04/20 Rx Furosemide [Lasix TAB] 40 mg PO QDAY #30 tablet 08/15/19 04/28/20 05/04/20 Rx lisinopriL [Zestril TAB] 20 mg PO QDAY #30 tablet 08/15/19 04/28/20 05/04/20 Rx Spironolactone [Aldactone] 25 mg PO QDAY #30 tablet 12/06/19 04/28/20 05/04/20 Rx Active Medications Cefazolin Sodium (Ancef/Sterile Water 2 Gm/20 Ml) 2 gm IV PREOP NR Stop: 05/05/20 23:00 Fentanyl (Sublimaze) 50 mcg IV Q5MIN PRN PRN Reason: Pain , Severe (7-10) Stop: 05/05/20 23:00 Lactated Ringer's (Lactated Ringers) 1,000 mls @ 42 mls/hr IV DIRECT TREVER Last Admin: 05/05/20 07:05 Dose: 42 mls/hr Documented by: - Brief post op/procedure progress note Date of procedure: 05/05/20 Pre-op diagnosis: BPH, RETENTION Post-op diagnosis: same Procedure: CYST, RPG, SPT, TUR BLADDER NECK, GREENLIGHT LASER OF PROSTATE Anesthesia: GETA Surgeon: MIKEL CHAWLA Estimated blood loss: minimal Pathology: list (PROSTATE (LADDER NECK CHIPS)) Condition: stable - Hospital course Hospital course: BACTRIM, DITROPAN & NORCO ON CHART CHAUDHRY IRRIGATES WELL - Disposition Condition at discharge: Stable Short Stay Discharge Plan Follow up with: ROWAN CONSTANTINO MD [Primary Care Provider] - 7 Days
--- NOTE | 2020-05-05 09:58 | Operative Report ---
PREOPERATIVE DIAGNOSES: Benign prostatic hypertrophy, urinary retention. POSTOPERATIVE DIAGNOSES: Benign prostatic hypertrophy, urinary retention. PROCEDURE: Cystoscopy, bilateral retrograde pyelograms, suprapubic catheter placement, TUR bladder neck, GreenLight laser ablation of the prostate. SURGEON: Kiko Castellanos MD ANESTHESIA: General. ESTIMATED BLOOD LOSS: Minimal. FLUIDS: Crystalloid. COMPLICATIONS: No complications. INDICATIONS: This patient is a 80-year-old gentleman referred by Dr. Aguilar for urinary retention and BPH. Urodynamic testing was consistent with a significant outlet obstruction, flow rate of 3 mL an hour. The patient failed medical management with Flomax and presents now for surgical intervention. Due to a history of his dementia and congestive heart failure, discussed with the family the need for a suprapubic catheter placement in addition to his TUR as an alternative. Discussed options; they agreed to proceed with surgical intervention. DESCRIPTION OF PROCEDURE: The patient was taken to the operative suite, placed in a supine position. After adequate general anesthesia, placed in a dorsal lithotomy position, prepped and draped in a sterile fashion. Pancystourethroscopy was performed with a 22-Slovenian Storz cystoscope, no urethral abnormalities. The patient had obvious moderate trilobar obstruction of the prostate with diffuse trabeculation in the bladder, no tumors or stones were noted. Both ureteral orifices in normal position. Bilateral retrograde pyelograms were obtained with an 8-Slovenian Digna catheter and 8 mL of contrast. No filling defects or obstruction. The patient did have some J-hooking of the distal ureters. Next, using a curved Lowsley retractor pinning the lower aspect of the anterior abdominal wall approximately 1 cm cephalad to pubic symphysis, Bovie was used to cut down to the retractor. It was brought on to the abdominal wall, 2-0 silk was used to attach a 16-Slovenian onondaga tip catheter and it was pulled out to the urethra, stitch was cut, scope was followed the catheter back into the bladder, was inflated with 10 mL of sterile water. It was then attached to the skin with 2-0 silk in interrupted fashion. Next, using a 22-Slovenian resectoscope and loop with the cutting and coag on 160 and 60, transurethral resection of the median lobe was performed. Chips were evacuated out with the [employer] evacuator. Next, using the GreenLight MoXy probe, now using saline vaporization of the prostate was performed starting at 80 riggs and going up to 120 riggs. Adequate ablation of the lateral lobes and included the median lobe as well without difficulty. Minimal bleeding was noted, 24-Slovenian 3-way catheter to continuous bladder irrigation was placed and prior to that all the chips were evacuated out with the [employer] evacuator. Rectal exam was benign. The patient tolerated the procedure well and was extubated and taken to recovery room in stable condition. He will be observed overnight and go home with his catheter on Bactrim and [place]. JOB# [id number] [facility]
[2020-05-05] MEDS ORDERED: NALOXONE 0.4 MG/1 ML INJ IV PRN (10:00)
[2020-05-05] MEDS ORDERED: LACTATED RINGERS 1,000 ML ONE (10:05)
[2020-05-05] MEDS: SODIUM CHLORIDE 0.9% 1000 ML 1,000 ML IV SCH ×2 (11:01→23:32)
[2020-05-05] MEDS: MORPHINE 2 MG/1 ML INJ IV PRN ×2 (11:08→20:15)
[2020-05-05] MEDS: HYDROcodone/ACETAMINOPHEN 5-325 MG TAB PO PRN ×2 (13:33→22:03)
[2020-05-05] MEDS: FUROSEMIDE 40 MG TAB PO SCH (13:37)
[2020-05-05] MEDS: SPIRONOLACTONE 25 MG TAB PO SCH (13:37)
[2020-05-05] MEDS: FOLIC ACID 1 MG TAB PO SCH (13:37)
[2020-05-05] MEDS: LISINOPRIL 20 MG TAB PO SCH (13:38)
[2020-05-05] MEDS: POTASSIUM CHLORIDE ER 10 MEQ TAB PO SCH (13:38)
[2020-05-05] MEDS: DOCUSATE SODIUM 100 MG CAP PO PRN (13:38)
[2020-05-05] MEDS: carvediloL 3.125 MG TAB PO SCH ×2 (13:38→22:04)
[2020-05-05] MEDS: THIAMINE 100 MG TAB PO SCH (13:47)
--- NOTE | 2020-05-05 13:54 | Post Anesthesia Evaluation ---
- Post Anesthesia Evaluation Patient Participated: Yes Airway Patent: Yes Stable Respiratory Function: Yes Nausea/Vomiting: No Temp > 96.8F: Yes Pain Manageable: Yes Adequeate Hydration: Yes Anesthesia Complications: No
--- NOTE | 2020-05-05 17:21 | Fluoroscopy Report ---
FL retrograde urography INDICATION / CLINICAL INFORMATION: BPH AND URNIARY RETENTION. COMPARISON: None available. FINDINGS: Spot intraoperative images were used during bilateral retrograde pyelogram, placement of suprapubic c atheter and prostate procedure. Fluoroscopy time: 9 seconds. Fluoroscopic images: 8 Signer Name: Anthony Saha MD Signed: 05/05/2020 5:17 PM Workstation Name: [id number]
[2020-05-05] MEDS: SODIUM CHLORIDE 0.9% IRRIG SOLN 2000 ML IR SCH ×3 (17:30→23:39)
[2020-05-05] MEDS: ceFAZolin/NS 1 GM/50 ML 1 GM/50 ML BAG IV SCH ×2 (17:43→23:32)
--- NOTE | 2020-05-05 17:57 | Consultation ---
History of Present Illness - Reason for Consult Consult date: 05/05/20 Medical management Requesting physician: MIKEL CHAWLA - History of Present Illness 79-year-old -[place] male with a medical history of dementia, congestive heart failure, hypertension, hyperlipidemia admitted for urology procedure. Patient successfully had TUR bladder neck and cystoscopy which was performed for urinary retention. Medical team consulted for medical management. List of medications reviewed. He has a history of congestive heart failure and a recent echocardiogram performed showed an EF of 30 to 35%. Saw and examined patient at bedside. He has no complaints. Complete history limited due to patient's underlying dementia. Discussed with patient's son on the phone but he does not have the most updated medication list. Left a voice message for patient's daughter to call back. Past History Past Medical History: heart failure, hypertension, hyperlipidemia, other (Dementia) Family history: other Medications and Allergies Allergies Allergy/AdvReac Type Severity Reaction Status Date / Time No Known Allergies Allergy Verified 03/02/20 11:04 Home Medications Medication Instructions Recorded Confirmed Last Taken Type Aspirin EC [Ecotrin] 325 mg PO QDAY #30 tablet 08/21/16 04/28/20 05/04/20 Rx Potassium Chloride [K-Dur] 10 meq PO QDAY #30 tablet 08/21/16 04/28/20 05/04/20 Rx Acetaminophen [Tylenol] 325 mg PO Q4HR PRN 02/26/19 04/28/20 05/04/20 History AtorvaSTATin [Lipitor] 40 mg PO QHS 02/26/19 04/28/20 05/04/20 History Ergocalciferol (Vitamin D2) 50,000 unit PO QWEEK 02/26/19 04/28/20 05/04/20 History [Vitamin D2] Folic Acid [Folvite] 1 mg PO QDAY #30 tablet 03/01/19 04/28/20 05/04/20 Rx Thiamine [Vitamin B-1] 100 mg PO QDAY #30 tablet 03/01/19 04/28/20 05/04/20 Rx carvediloL [Coreg] 3.125 mg PO BID tablet 03/01/19 04/28/20 05/04/20 Rx Docusate Sodium [Colace CAP] 100 mg PO BID PRN #30 capsule 08/15/19 04/28/20 05/04/20 Rx Furosemide [Lasix TAB] 40 mg PO QDAY #30 tablet 08/15/19 04/28/20 05/04/20 Rx lisinopriL [Zestril TAB] 20 mg PO QDAY #30 tablet 08/15/19 04/28/20 05/04/20 Rx Spironolactone [Aldactone] 25 mg PO QDAY #30 tablet 12/06/19 04/28/20 05/04/20 Rx Active Meds: Active Medications Hydrocodone Bitart/Acetaminophen ([place] 5/325) 2 each PO Q4H PRN PRN Reason: Pain, Moderate (4-6) Last Admin: 05/05/20 13:33 Dose: 2 each Documented by: Atorvastatin Calcium (Lipitor) 40 mg PO QHS [facility] Carvedilol (Coreg) 3.125 mg PO BID [facility] Last Admin: 05/05/20 13:38 Dose: 3.125 mg Documented by: Cefazolin Sodium (Ancef/Sterile Water 2 Gm/20 Ml) 2 gm IV PREOP NR Stop: 05/05/20 23:00 Docusate Sodium (Colace) 100 mg PO BID PRN PRN Reason: Constipation Last Admin: 05/05/20 13:38 Dose: 100 mg Documented by: Ergocalciferol (Vitamin D2) 50,000 unit PO [facility] [place] Fentanyl (Sublimaze) 50 mcg IV Q5MIN PRN PRN Reason: Pain , Severe (7-10) Stop: 05/05/20 23:00 Folic Acid (Folvite) 1 mg PO QDAY [facility] Last Admin: 05/05/20 13:37 Dose: 1 mg Documented by: Furosemide (Lasix) 40 mg PO QDAY [facility] Last Admin: 05/05/20 13:37 Dose: 40 mg Documented by: Lactated Ringer's (Lactated Ringers) 1,000 mls @ 42 mls/hr IV DIRECT TREVER Last Admin: 05/05/20 07:05 Dose: 42 mls/hr Documented by: Sodium Chloride (Nacl 0.9% 1000 Ml) 1,000 mls @ 75 mls/hr IV DIRECT TREVER Last Admin: 05/05/20 11:01 Dose: 75 mls/hr Documented by: Cefazolin Sodium (Ancef/Ns 1 Gm/50 Ml) 1 gm in 50 mls @ 100 mls/hr IV Q8H [facility]; Protocol Stop: 05/06/20 00:29 Last Admin: 05/05/20 17:43 Dose: 100 mls/hr Documented by: Lisinopril (Zestril) 20 mg PO QDAY [facility] Last Admin: 05/05/20 13:38 Dose: 20 mg Documented by: Morphine Sulfate (Morphine) 2 mg IV Q4H PRN PRN Reason: Pain, Moderate (4-6) Last Admin: 05/05/20 11:08 Dose: 2 mg Documented by: Naloxone HCl (Naloxone) 0.1 mg IV Q2MIN PRN PRN Reason: Res Rate </= 8 or 02 SAT < 92% Potassium Chloride (K-Dur) 10 meq PO QDAY [facility] Last Admin: 05/05/20 13:38 Dose: 10 meq Documented by: Sodium Chloride (Nacl 0.9%) 2,000 ml IR DIRECT TREVER Last Admin: 05/05/20 17:30 Dose: 2,000 ml Documented by: Spironolactone (Aldactone) 25 mg PO QDAY [facility] Last Admin: 05/05/20 13:37 Dose: 25 mg Documented by: Thiamine HCl (Vitamin B-1) 100 mg PO QDAY [facility] Last Admin: 05/05/20 13:47 Dose: 100 mg Documented by: Exam - Constitutional Vitals: Temp Pulse Resp BP Pulse Ox 97.4 F L 76 18 147/89 100 05/05/20 10:43 05/05/20 10:43 05/05/20 10:43 05/05/20 13:37 05/05/20 10:43 General appearance: Present: no acute distress, well-nourished - EENT Eyes: Present: PERRL ENT: hearing intact, clear oral mucosa - Neck Neck: Present: supple, normal ROM - Respiratory Respiratory effort: normal Respiratory: bilateral: CTA - Cardiovascular Heart Sounds: Present: S1 & S2. Absent: rub, click - Extremities Extremities: pulses symmetrical, No edema Peripheral Pulses: within normal limits - Abdominal General gastrointestinal: Present: soft, non-tender, non-distended, normal bowel sounds Male genitourinary: Present: normal - Integumentary Integumentary: Present: clear, warm, dry - Musculoskeletal Musculoskeletal: gait normal, strength equal bilaterally - Psychiatric Psychiatric: appropriate mood/affect, intact judgment & insight - Neurologic Neurologic: CNII-XII intact, moves all extremities Results - Labs CBC & Chem 7: 04/29/20 09:19 04/29/20 09:19 Assessment and Plan - Patient Problems (1) Urinary retention Current Visit: Yes Status: Acute Plan to address problem: Now status post urologic procedure Has a three-way catheter in place Urology is primary (2) CHF (congestive heart failure) Current Visit: No Status: Chronic Qualifiers: Heart failure type: combined systolic and diastolic Plan to address problem: Continue Coreg, lisinopril and Aldactone (3) Hyperlipidemia Current Visit: No Status: Chronic Qualifiers: Hyperlipidemia type: mixed hyperlipidemia Qualified Code(s): E78.2 - Mixed hyperlipidemia Plan to address problem: Continue statins (4) Hypertension Current Visit: No Status: Chronic Qualifiers: Hypertension type: essential hypertension Qualified Code(s): I10 - Essential (primary) hypertension Plan to address problem: Continue blood pressure medications (5) Vitamin D deficiency Current Visit: No Status: Chronic Plan to address problem: Continue vitamin D 50,000 units weekly (6) DVT prophylaxis Current Visit: Yes Status: Acute Plan to address problem: Anticoagulation as per primary
[2020-05-05 21:47] VITALS: BP 121/80
[2020-05-06] MEDS: DOCUSATE SODIUM 100 MG CAP PO PRN (02:27)
[2020-05-06] MEDS: MORPHINE 2 MG/1 ML INJ IV PRN ×2 (02:27→08:15)
[2020-05-06] MEDS: SODIUM CHLORIDE 0.9% IRRIG SOLN 2000 ML IR SCH ×2 (02:43→09:53)
[2020-05-06 05:35] LABS: Basophils # (Auto) 0.1 K/mm3 (0.0-0.1); Basophils % (Auto) 0.4 % (0.0-1.8); Eosinophils % (Auto) 0.1 % (0.0-4.3); Hematocrit 39.5 % (35.5-45.6); Hemoglobin 12.6 gm/dl (11.8-15.2); Lymphocytes # (Auto) 1.5 K/mm3 (1.2-5.4); Lymphocytes % (Auto) 10.9 % (13.4-35.0); Mean Corpuscular HGB Conc 32 % (32-34); Mean Corpuscular Volume 93 fl (84-94); Monocytes # (Auto) 0.7 K/mm3 (0.0-0.8); Monocytes % (Auto) 5.1 % (0.0-7.3); Platelet Count 221 K/mm3 (140-440); Red Blood Count 4.24 M/mm3 (3.65-5.03); Red Cell Distribution Width 16.5 % (13.2-15.2)
[2020-05-06 05:47] LABS: BUN/Creatinine Ratio 16; Blood Urea Nitrogen 13 mg/dL (9-20); Calcium 8.6 mg/dL (8.4-10.2); Hemolysis Index 4
[2020-05-06] MEDS: HYDROcodone/ACETAMINOPHEN 5-325 MG TAB PO PRN ×2 (06:29→10:24)
[2020-05-06] MEDS: FUROSEMIDE 40 MG TAB PO SCH (09:40)
[2020-05-06] MEDS: LISINOPRIL 20 MG TAB PO SCH (09:41)
[2020-05-06] MEDS: carvediloL 3.125 MG TAB PO SCH (09:41)
[2020-05-06] MEDS: THIAMINE 100 MG TAB PO SCH (09:42)
[2020-05-06] MEDS: POTASSIUM CHLORIDE ER 10 MEQ TAB PO SCH (09:42)
[2020-05-06] MEDS: FOLIC ACID 1 MG TAB PO SCH (09:42)
[2020-05-06] MEDS: SPIRONOLACTONE 25 MG TAB PO SCH (09:42)
[2020-05-06] MEDS ORDERED: ERGOCALCIFEROL (VIT D2) 50,000 UNIT CAP PO SCH (10:00)
[2020-05-06] MEDS ORDERED: SODIUM CHLORIDE 0.9% IRR 1,000 ML BOTTLE IR PRN (11:35)
--- NOTE | 2020-05-06 15:29 | Progress Note ---
Assessment and Plan Assessment and plan: (1) Urinary retention Current Visit: Yes Status: Acute Plan to address problem: Now status post urologic procedure Has a three-way catheter in place Urology is primary (2) CHF (congestive heart failure) Current Visit: No Status: Chronic Qualifiers: Heart failure type: combined systolic and diastolic Plan to address problem: Continue Coreg, lisinopril and Aldactone (3) Hyperlipidemia Current Visit: No Status: Chronic Qualifiers: Hyperlipidemia type: mixed hyperlipidemia Qualified Code(s): E78.2 - Mixed hyperlipidemia Plan to address problem: Continue statins (4) Hypertension Current Visit: No Status: Chronic Qualifiers: Hypertension type: essential hypertension Qualified Code(s): I10 - [place]ent[place] l (primary) hypertension Plan to address problem: Continue blood pressure medications (5) Vitamin D deficiency Current Visit: No Status: Chronic Plan to address problem: Continue vitamin D 50,000 units weekly (6) DVT prophylaxis Current Visit: Yes Status: Acute Plan to address problem: Anticoagulation as per primary History Interval history: No new issues overnight Hospitalist Physical - Constitutional Vitals: Temp Pulse Resp BP Pulse Ox 98.8 F 80 20 121/80 99 05/05/20 21:12 05/06/20 09:42 05/05/20 21:50 05/06/20 09:42 05/05/20 21:50 General appearance: Present: no acute distress, well-nourished - EENT Eyes: Present: PERRL, EOM intact ENT: hearing intact, clear oral mucosa, dentition normal - Neck Neck: Present: supple, normal ROM - Respiratory Respiratory effort: normal Respiratory: bilateral: CTA - Cardiovascular Rhythm: regular Heart Sounds: Present: S1 & S2. Absent: gallop, rub - Extremities Extremities: no ischemia, No edema, Full ROM - Abdominal General gastrointestinal: soft, non-tender, non-distended, normal bowel sounds - Integumentary Integumentary: Present: clear, warm, dry - Neurologic Neurologic: CNII-XII intact, moves all extremities Results - Labs CBC & Chem 7: 05/06/20 04:46 05/06/20 04:46 Labs: Laboratory Last Values WBC 13.9 K/mm3 (4.5-11.0) H 05/06/20 04:46 RBC 4.24 M/mm3 (3.65-5.03) 05/06/20 04:46 Hgb 12.6 gm/dl (11.8-15.2) 05/06/20 04:46 Hct 39.5 % (35.5-45.6) 05/06/20 04:46 MCV 93 fl (84-94) 05/06/20 04:46 MCH 30 pg (28-32) 05/06/20 04:46 MCHC 32 % (32-34) 05/06/20 04:46 RDW 16.5 % (13.2-15.2) H 05/06/20 04:46 Plt Count 221 K/mm3 (140-440) 05/06/20 04:46 Lymph % (Auto) 10.9 % (13.4-35.0) L 05/06/20 04:46 [place] % (Auto) 5.1 % (0.0-7.3) 05/06/20 04:46 Eos % (Auto) 0.1 % (0.0-4.3) 05/06/20 04:46 Baso % (Auto) 0.4 % (0.0-1.8) 05/06/20 04:46 Lymph # (Auto) 1.5 K/mm3 (1.2-5.4) 05/06/20 04:46 [place] # (Auto) 0.7 K/mm3 (0.0-0.8) 05/06/20 04:46 Eos # (Auto) 0.0 K/mm3 (0.0-0.4) 05/06/20 04:46 Baso # (Auto) 0.1 K/mm3 (0.0-0.1) 05/06/20 04:46 Seg Neutrophils % 83.5 % (40.0-70.0) H 05/06/20 04:46 Seg Neutrophils # 11.6 K/mm3 (1.8-7.7) H 05/06/20 04:46 Sodium 137 mmol/L (137-145) 05/06/20 04:46 Potassium 4.5 mmol/L (3.6-5.0) 05/06/20 04:46 Chloride 103.2 mmol/L (98-107) 05/06/20 04:46 Carbon Dioxide 22 mmol/L (22-30) 05/06/20 04:46 Anion Gap 16 mmol/L 05/06/20 04:46 BUN 13 mg/dL (9-20) 05/06/20 04:46 Creatinine 0.8 mg/dL (0.8-1.3) 05/06/20 04:46 Estimated GFR > 60 ml/min 05/06/20 04:46 BUN/Creatinine Ratio 16 % 05/06/20 04:46 Glucose 117 mg/dL (75-100) H 05/06/20 04:46 Calcium 8.6 mg/dL (8.4-10.2) 05/06/20 04:46 Total Bilirubin 1.30 mg/dL (0.1-1.2) H 04/29/20 09:19 AST 17 units/L (5-40) 04/29/20 09:19 ALT 20 units/L (7-56) 04/29/20 09:19 Alkaline Phosphatase 188 units/L (35-129) H 04/29/20 09:19 Total Protein 6.7 g/dL (6.3-8.2) 04/29/20 09:19 Albumin 3.8 g/dL (3.9-5) L 04/29/20 09:19 Albumin/Globulin Ratio 1.3 % 04/29/20 09:19 Coronavirus (PCR) Negative (Negative) 04/29/20 Unknown Blood Type O POSITIVE 05/05/20 06:45 Antibody Screen Negative 05/05/20 06:45 Bryant/IV: Voiding Method Indwelling Catheter IV Catheter Type [Right Hand] INT / Saline Lock Active Medications - Current Medications Current Medications: Generic Name Dose Route Start Last Admin Trade Name Freq PRN Reason Stop Dose Admin Hydrocodone Bitart/Acetaminophen 2 each 05/05/20 10:00 05/06/20 10:24 [place] 5/325 PO 2 each Q4H PRN Administration Pain, Moderate (4-6) Atorvastatin Calcium 40 mg 05/05/20 22:00 05/05/20 22:04 Lipitor PO 40 mg QHS TREVER Administration Carvedilol 3.125 mg 05/05/20 10:00 05/06/20 09:41 Coreg PO 3.125 mg BID TREVER Administration Docusate Sodium 100 mg 05/05/20 10:00 05/06/20 02:27 Colace PO 100 mg BID PRN Administration Constipation Ergocalciferol 50,000 unit 05/06/20 10:00 05/06/20 09:41 Vitamin D2 PO 50,000 unit Tu TREVER Administration Folic Acid 1 mg 05/05/20 10:00 05/06/20 09:42 Folvite PO 1 mg QDAY [facility] Administration Furosemide 40 mg 05/05/20 10:00 05/06/20 09:40 Lasix PO 40 mg QDAY [facility] Administration Lactated Ringer's 1,000 mls @ 42 mls/hr 05/05/20 06:00 05/05/20 07:05 Lactated Ringers IV 42 mls/hr DIRECT TREVER Administration Sodium Chloride 1,000 mls @ 75 mls/hr 05/05/20 10:00 05/05/20 23:32 Nacl 0.9% 1000 Ml IV 75 mls/hr DIRECT TREVER Administration Levofloxacin/Dextrose 500 mg in 100 mls @ 100 mls/hr 05/06/20 11:00 05/06/20 10:26 Levaquin 500mg/100ml IV 100 mls/hr Q24HR TREVER Administration Protocol Lisinopril 20 mg 05/05/20 10:00 05/06/20 09:41 Zestril PO 20 mg QDAY TRE[facility] Administration Morphine Sulfate 2 mg 05/05/20 10:00 05/06/20 08:15 Morphine IV 2 mg Q4H PRN Administration Pain, Moderate (4-6) Naloxone HCl 0.1 mg 05/05/20 10:00 Naloxone IV Q2MIN PRN Res Rate </= 8 or 02 SAT < 92% Potassium Chloride 10 meq 05/05/20 10:00 05/06/20 09:42 K-Dur PO 10 meq QDAY TREVER Administration Sodium Chloride 2,000 ml 05/05/20 10:00 05/06/20 09:53 Nacl 0.9% IR 2,000 ml DIRECT TREVER Administration Sodium Chloride 1,000 ml 05/06/20 11:35 05/06/20 13:58 Nacl 0.9% IR 1,000 ml PRN PRN Administration Wound Care Spironolactone 25 mg 05/05/20 10:00 05/06/20 09:42 Aldactone PO 25 mg QDAY TRE[facility] Administration Thiamine HCl 100 mg 05/05/20 10:00 05/06/20 09:42 Vitamin B-1 PO 100 mg QDAY TREVER Administration
== END 2020-05-06 15:37 | disposition home or self-care (01) ==
LOC: OR 06:02 → 3A 09:24
PROVIDERS: ADMIT Urology; ATTEND Urology
DX: N40.1 Benign prostatic hyperplasia with lower urinary tract symptoms (principal); Z20.828 Contact with and (suspected) exposure to other viral communicable diseases; R33.8 Other retention of urine; I11.0 Hypertensive heart disease with heart failure; I50.9 Heart failure, unspecified; E78.2 Mixed hyperlipidemia; E55.9 Vitamin D deficiency, unspecified; F02.80 Dementia in other diseases classified elsewhere, unspecified severity, without behavioral disturbance, psychotic disturbance, mood disturbance, and anxiety; Z79.82 Long term (current) use of aspirin
CPT/HCPCS: 36415; 52005; 74420; 80048; 80053; 85025; 85027; 86850; 86900; 86901; 88305; 96361; 96365; 96366; 96367; 96375; 96376; A4217; A9270; G0378; J0690; J1100; J1956; J2270; J2370; J2405; J2704; J3010; J7030; J7120; Q9967; U0003

== ENCOUNTER 2020-10-30 11:23 | Emergency (ER) | payer MEDICARE ==
[2020-10-30 11:58] VITALS: BP 126/76
--- NOTE | 2020-10-30 12:38 | Event Note ---
ED Screening Note ED Screening Note: Briseida Dunham RN Patient presents for shortness of breath and bilateral lower extremity swelling that worsened today He states he is also experiencing groin pain and swelling Patient has past medical history of CHF He denies any chest pain, abdominal pain, nausea, vomiting, diarrhea There appears to be left-sided scrotal edema, no high riding of the testicle, no erythema or increased warmth This initial assessment/diagnostic orders/clinical plan/treatment(s) is/are subject to change based on patients health status, clinical progression and re- assessment by fellow clinical providers in the ED. Further treatment and workup at subsequent clinical providers discretion. Patient/guardian urged not to elope from the ED as their condition may be serious if not clinically assessed and managed. Initial orders include: Labs, x-ray, EKG, ultrasound
--- NOTE | 2020-10-30 13:09 | XRay Report ---
CHEST 2 VIEWS 1246 INDICATION / CLINICAL INFORMATION: SOB, swelling COMPARISON: 12/03/2019 FINDINGS: SUPPORT DEVICES: None. HEART / MEDIASTINUM: Mild cardiomegaly is again seen LUNGS / PLEURA: Elevation the left hemidiaphragm is again noted. Scarring is seen in the lung bases. Pulmonary vascularity appears within normal limits. No definite acute infiltrates are seen. No pleura l effusions are noted. No pneumothorax. ADDITIONAL FINDINGS: No significant additional findings. IMPRESSION: No significant acute abnormality Signer Name: Emile Palomino MD Signed: 10/30/2020 1:04 PM Workstation Name: [id number]
[2020-10-30 13:31] LABS: BUN/Creatinine Ratio 12
[2020-10-30 13:32] LABS: Alanine Aminotransferase 15 units/L (7-56); Albumin 3.9 g/dL (3.9-5); Blood Urea Nitrogen 12 mg/dL (9-20); Calcium 8.5 mg/dL (8.4-10.2); Hemolysis Index 12
[2020-10-30 13:48] LABS: Basophils # (Auto) 0.1 K/mm3 (0.0-0.1); Basophils % (Auto) 1.3 % (0.0-1.8); Eosinophils # (Auto) 0.1 K/mm3 (0.0-0.4); Eosinophils % (Auto) 2.3 % (0.0-4.3); Hematocrit 41.3 % (35.5-45.6); Hemoglobin 13.5 gm/dl (11.8-15.2); Lymphocytes # (Auto) 1.5 K/mm3 (1.2-5.4); Lymphocytes % (Auto) 29.1 % (13.4-35.0); Mean Corpuscular HGB Conc 33 % (32-34); Mean Corpuscular Volume 91 fl (84-94); Monocytes # (Auto) 0.4 K/mm3 (0.0-0.8); Monocytes % (Auto) 7.8 % (0.0-7.3); Platelet Count 259 K/mm3 (140-440); Red Blood Count 4.56 M/mm3 (3.65-5.03)
--- NOTE | 2020-10-30 14:38 | Ultrasound Report ---
Ultrasound testicular Doppler complete HISTORY: Testicular pain and swelling TECHNIQUE: Grayscale ultrasound with color and spectral Doppler imaging COMPARISON: None FINDINGS: The right testicle measures 3.9 x 2.7 x 2.9 cm. The left testicle measures 4.4 x 2.7 x 3.0 cm. No evidence for testicular cyst, mass, calcifications or torsion. No hyperemia. Small bilateral epididymal head cysts are identified. No evidence for epididymitis. Moderate bilateral hydroceles containing debris are present. No significant varicocele. IMPRESSION: Moderate bilateral hydroceles containing debris. No evidence for acute inflammation, mass or torsion. Signer Name: Cayden Thomas Jr, MD Signed: 10/30/2020 2:34 PM Workstation Name: [id number]
--- NOTE | 2020-10-31 10:48 | Electrocardiograph Report ---
[facility] Test Date: 2020-10-30 Test Time: 09:22:24 Pat Name: HERVE VENCES Department: Room: Gender: M [employer]: NILESH : 1940 Requested By: NICOLETTE GONSALVES Order Number: [id number] Reading MD: Candelario Martinez Measurements Intervals [place] Rate: 60 P: 61 NV: 172 QRS: 17 QRSD: 78 T: 7 QT: 418 QTc: 418 Interpretive Statements Sinus rhythm Probable left atrial enlargement nonspecific st-t No previous ECG available for comparison Electronically Signed On 10-31-2020 10:48:25 EDT by Candelario Martinez
== END 2020-10-30 20:00 | disposition left against medical advice (07) ==
LOC: ED 11:23
DX: R06.02 Shortness of breath (principal); M79.89 Other specified soft tissue disorders; Z53.21 Procedure and treatment not carried out due to patient leaving prior to being seen by health care provider
CPT/HCPCS: 36415; 71046; 80053; 83880; 84484; 85025; 93005; 93975

== ENCOUNTER 2020-10-31 13:18 | Emergency (ER) | payer MEDICARE ==
[2020-10-31 13:32] VITALS: BP 133/88
--- NOTE | 2020-10-31 13:33 | Event Note ---
ED Screening Note Date of service: 10/31/20 Time: 13:32 ED Screening Note: Patient complains of shortness of breath and bilateral foot swelling History of CHF Also has some groin pain and swelling Patient denies abdominal pain or chest pain This initial assessment/diagnostic orders/clinical plan/treatment(s) is/are subject to change based on patients health status, clinical progression and re- assessment by fellow clinical providers in the ED. Further treatment and workup at subsequent clinical providers discretion. Patient/guardian urged not to elope from the ED as their condition may be serious if not clinically assessed and managed. Initial orders include: Labs EKG Chest x-ray
--- NOTE | 2020-10-31 14:08 | XRay Report ---
CHEST 2 VIEWS INDICATION / CLINICAL INFORMATION: shortness of breath. COMPARISON: 10/30/2020 FINDINGS: SUPPORT DEVICES: None. HEART / MEDIASTINUM: Stable. LUNGS / PLEURA: Elevation of the left hemidiaphragm with associated atelectasis. No significant pulmo nary or pleural abnormality. No pneumothorax. ADDITIONAL FINDINGS: No significant additional findings. IMPRESSION: 1. No acute findings or significant interval change. Signer Name: Turner Aiken MD Signed: 10/31/2020 2:03 PM Workstation Name: [id number]
[2020-10-31 14:21] LABS: Basophils # (Auto) 0.1 K/mm3 (0.0-0.1); Eosinophils # (Auto) 0.1 K/mm3 (0.0-0.4); Eosinophils % (Auto) 1.9 % (0.0-4.3); Hematocrit 40.6 % (35.5-45.6); Hemoglobin 13.4 gm/dl (11.8-15.2); Lymphocytes # (Auto) 1.3 K/mm3 (1.2-5.4); Lymphocytes % (Auto) 27.2 % (13.4-35.0); Mean Corpuscular HGB Conc 33 % (32-34); Mean Corpuscular Volume 89 fl (84-94); Monocytes # (Auto) 0.4 K/mm3 (0.0-0.8); Monocytes % (Auto) 7.6 % (0.0-7.3); Platelet Count 275 K/mm3 (140-440); Red Blood Count 4.55 M/mm3 (3.65-5.03); Red Cell Distribution Width 17.1 % (13.2-15.2)
[2020-10-31 14:49] LABS: Alanine Aminotransferase 13 units/L (7-56); Albumin 3.7 g/dL (3.9-5); BUN/Creatinine Ratio 9; Blood Urea Nitrogen 10 mg/dL (9-20); Calcium 8.6 mg/dL (8.4-10.2); Hemolysis Index 4
== END 2020-10-31 18:40 | disposition left against medical advice (07) ==
LOC: ED 13:18
DX: I50.9 Heart failure, unspecified (principal); Z53.21 Procedure and treatment not carried out due to patient leaving prior to being seen by health care provider
CPT/HCPCS: 36415; 71046; 80053; 83880; 84484; 85025